=== PATIENT | male | born 1930 | race Caucasian/White ===

== ENCOUNTER 2018-03-22 18:40 | Inpatient (IN) | payer MEDICARE, BC ==
[2018-03-22 19:44] LABS: ADD MAN DIFF? NO
[2018-03-22 19:52] LABS: BASOPHILS % 0.2 % (0.0-2.0); EOSINOPHILS # 0.1 10^3/ul (0.0-0.5); EOSINOPHILS % 1.1 % (0.0-7.0); HEMATOCRIT 39.8 % (42.0-52.0); HEMOGLOBIN 13.6 g/dl (14.0-18.0); LYMPHOCYTES # 0.7 10^3/ul (0.8-2.9); MEAN CORPUSCULAR HEMOGLOBIN 33.1 pg (29.0-33.0); MEAN CORPUSCULAR HGB CONC 34.2 g/dl (32.0-37.0); MEAN CORPUSCULAR VOLUME 96.8 fl (82.0-101.0); MEAN PLATELET VOLUME 11.9 fl (7.4-10.4); MONOCYTE # 0.5 10^3/ul (0.3-0.9); MONOCYTES % 9.1 % (0.0-11.0); NEUTROPHIL # 4.1 10^3/ul (1.6-7.5); NEUTROPHILS % 75.9 % (39.0-77.0); PLATELET COUNT 230 10^3/UL (140-415); RED BLOOD COUNT 4.11 10^6/ul (4.70-6.10); RED CELL DISTRIBUTION WIDTH 12.4 % (11.5-14.5)
[2018-03-22 19:52] LABS: WHITE BLOOD COUNT 5.4 10^3/ul (4.8-10.8)
[2018-03-22 20:00] LABS: LACTIC ACID 1.1 mmol/L (0.5-2.0)
[2018-03-22 20:02] LABS: INR 0.93; PARTIAL THROMBOPLASTIN TIME 21.5 Sec (25.0-35.0); PROTIME 12.6 Sec (11.9-14.9)
[2018-03-22 20:10] LABS: ALANINE AMINOTRANSFERASE 15 IU/L (13-69); ALBUMIN/GLOBULIN RATIO 1.02; ALKALINE PHOSPHATASE 90 IU/L (42-121); ANION GAP 12 (8-16); ASPARTATE AMINO TRANSFERASE 44 IU/L (15-46); BILIRUBIN,INDIRECT 0.7 mg/dl (0-1.1); BILIRUBIN,TOTAL 0.7 mg/dl (0.2-1.3); BLOOD UREA NITROGEN 27 mg/dl (7-20); CALCIUM 8.9 mg/dl (8.4-10.2); CARBON DIOXIDE 31 mmol/L (21-31); CHLORIDE 96 mmol/L (97-110); CREATININE 0.51 mg/dl (0.61-1.24); GLUCOSE 82 mg/dl (70-220); SODIUM 135 mmol/L (135-144); TOTAL PROTEIN 7.9 g/dl (6.1-8.1)
[2018-03-22 20:11] LABS: ADD UMIC YES; UR ASCORBIC ACID 40 mg/dL (NEGATIVE); UR BILIRUBIN (Dip) NEGATIVE (NEGATIVE); UR BLOOD (Dip) 1+ mg/dL (NEGATIVE); UR CLARITY CLEAR (CLEAR); UR COLOR YELLOW (YELLOW); UR GLUCOSE (Dip) NEGATIVE (NEGATIVE); UR KETONES (Dip) TRACE mg/dL (NEGATIVE); UR LEUKOCYTE ESTERASE (Dip) NEGATIVE Leu/ul (NEGATIVE); UR MUCUS FEW /HPF (NONE SEEN); UR NITRITE (Dip) NEGATIVE (NEGATIVE); UR RBC 153 /HPF (0-5); UR SPECIFIC GRAVITY (Dip) 1.017 (1.003-1.030); UR TOTAL PROTEIN (Dip) NEGATIVE (NEGATIVE); UR UROBILINOGEN (Dip) 2+ mg/dL (NEGATIVE); UR WBC 4 /HPF (0-5)
[2018-03-22 20:24] LABS: TROPONIN-I < 0.012 ng/ml (0.000-0.120)
[2018-03-22] MEDS ORDERED: ONDANSETRON 4 MG INJ IV ×2 (21:00→23:30)
[2018-03-22] MEDS ORDERED: ACETAMINOPHEN 325 MG TAB PO (21:00)
[2018-03-22] MEDS: AZITHROMYCIN 500MG/NS (PMX) 250 ML IVPB (21:30)
[2018-03-22] MEDS: AMPICILLIN/SULB 3 GM/NS (PMX) 100 ML IVPB (23:09)
[2018-03-22 23:24] LABS: LACTIC ACID 1.1 mmol/L (0.5-2.0)
[2018-03-22] MEDS ORDERED: ACETAMINOPHEN 500 MG TAB PO (23:30)
[2018-03-22] MEDS: LORAZEPAM 2 MG INJ IV (23:58)
[2018-03-23] MEDS: D5W-0.45 NACL + KCL 20 MEQ 1,000 ML IV ×2 (01:13→14:21)
[2018-03-23] MEDS: ALBUTEROL/IPRATROPIUM (NEB) 3 ML AMP HHN ×4 (01:31→20:00)
[2018-03-23] MEDS: PIPER-TAZO 3.375 GM IV (PMX) 100 ML IVPB ×3 (06:15→21:49)
[2018-03-23 06:22] LABS: ADD MAN DIFF? NO
[2018-03-23 06:35] LABS: BASOPHILS % 0.1 % (0.0-2.0); EOSINOPHILS % 0.4 % (0.0-7.0); HEMATOCRIT 40.4 % (42.0-52.0); HEMOGLOBIN 13.5 g/dl (14.0-18.0); LYMPHOCYTES # 0.9 10^3/ul (0.8-2.9); LYMPHOCYTES % 11.6 % (15.0-51.0); MEAN CORPUSCULAR HEMOGLOBIN 32.5 pg (29.0-33.0); MEAN CORPUSCULAR HGB CONC 33.4 g/dl (32.0-37.0); MEAN CORPUSCULAR VOLUME 97.3 fl (82.0-101.0); MEAN PLATELET VOLUME 11.8 fl (7.4-10.4); MONOCYTE # 0.8 10^3/ul (0.3-0.9); MONOCYTES % 9.9 % (0.0-11.0); NEUTROPHIL # 5.9 10^3/ul (1.6-7.5); NEUTROPHILS % 77.5 % (39.0-77.0); PLATELET COUNT 219 10^3/UL (140-415); RED BLOOD COUNT 4.15 10^6/ul (4.70-6.10); RED CELL DISTRIBUTION WIDTH 12.7 % (11.5-14.5)
[2018-03-23 06:35] LABS: WHITE BLOOD COUNT 7.7 10^3/ul (4.8-10.8)
[2018-03-23 07:09] LABS: ANION GAP 8 (8-16); BLOOD UREA NITROGEN 20 mg/dl (7-20); CALCIUM 8.7 mg/dl (8.4-10.2); CARBON DIOXIDE 32 mmol/L (21-31); CHLORIDE 100 mmol/L (97-110); CREATININE 0.46 mg/dl (0.61-1.24); GLUCOSE 114 mg/dl (70-220); POTASSIUM 4.2 mmol/L (3.5-5.1); SODIUM 136 mmol/L (135-144)
[2018-03-23] MEDS: LORAZEPAM 2 MG INJ IV (16:22)
[2018-03-24] MEDS: D5W-0.45 NACL + KCL 20 MEQ 1,000 ML IV ×3 (00:30→12:19)
[2018-03-24] MEDS: ALBUTEROL/IPRATROPIUM (NEB) 3 ML AMP HHN ×4 (01:25→19:54)
[2018-03-24] MEDS: PIPER-TAZO 3.375 GM IV (PMX) 100 ML IVPB ×3 (05:24→22:00)
[2018-03-24] MEDS: PROPOFOL 20 ML (07:39)
[2018-03-24] MEDS: LIDOCAINE 2% (SDV) 5 ML INJ (07:40)
[2018-03-24 10:57] LABS: ADD MAN DIFF? NO
[2018-03-24 10:59] LABS: WHITE BLOOD COUNT 5.2 10^3/ul (4.8-10.8)
[2018-03-24 10:59] LABS: ABNORMAL IP MESSAGE 1; BASOPHILS % 0.2 % (0.0-2.0); EOSINOPHILS # 0.1 10^3/ul (0.0-0.5); EOSINOPHILS % 1.1 % (0.0-7.0); HEMATOCRIT 33.5 % (42.0-52.0); HEMOGLOBIN 10.8 g/dl (14.0-18.0); LYMPHOCYTES # 0.6 10^3/ul (0.8-2.9); LYMPHOCYTES % 11.3 % (15.0-51.0); MEAN CORPUSCULAR HEMOGLOBIN 32.1 pg (29.0-33.0); MEAN CORPUSCULAR HGB CONC 32.2 g/dl (32.0-37.0); MEAN CORPUSCULAR VOLUME 99.7 fl (82.0-101.0); MEAN PLATELET VOLUME 11.9 fl (7.4-10.4); MONOCYTE # 0.6 10^3/ul (0.3-0.9); MONOCYTES % 10.9 % (0.0-11.0); NEUTROPHILS % 76.3 % (39.0-77.0); PLATELET COUNT 181 10^3/UL (140-415); POSITIVE DIFF @See below; RED BLOOD COUNT 3.36 10^6/ul (4.70-6.10); RED CELL DISTRIBUTION WIDTH 12.6 % (11.5-14.5)
[2018-03-24 11:25] LABS: ANION GAP 14 (8-16); BLOOD UREA NITROGEN 15 mg/dl (7-20); CALCIUM 8.2 mg/dl (8.4-10.2); CARBON DIOXIDE 30 mmol/L (21-31); CHLORIDE 97 mmol/L (97-110); CREATININE 0.43 mg/dl (0.61-1.24); GLUCOSE 117 mg/dl (70-220); POTASSIUM 4.1 mmol/L (3.5-5.1); SODIUM 137 mmol/L (135-144)
[2018-03-24] MEDS: LORAZEPAM 2 MG INJ IV ×2 (12:42→20:01)
[2018-03-25] MEDS: D5W-0.45 NACL + KCL 20 MEQ 1,000 ML IV ×3 (00:16→14:00)
[2018-03-25] MEDS: ALBUTEROL/IPRATROPIUM (NEB) 3 ML AMP HHN ×4 (01:24→19:23)
[2018-03-25] MEDS: PIPER-TAZO 3.375 GM IV (PMX) 100 ML IVPB ×3 (06:07→22:03)
[2018-03-25] MEDS: LORAZEPAM 2 MG INJ IV (11:28)
[2018-03-26] MEDS: ALBUTEROL/IPRATROPIUM (NEB) 3 ML AMP HHN ×4 (01:35→19:34)
[2018-03-26] MEDS: D5W-0.45 NACL + KCL 20 MEQ 1,000 ML IV ×2 (02:53→15:00)
[2018-03-26] MEDS: PIPER-TAZO 3.375 GM IV (PMX) 100 ML IVPB ×3 (05:13→22:40)
[2018-03-26 06:19] LABS: ADD MAN DIFF? NO
[2018-03-26 06:31] LABS: BASOPHILS % 0.2 % (0.0-2.0); EOSINOPHILS % 0.7 % (0.0-7.0); HEMATOCRIT 34.7 % (42.0-52.0); HEMOGLOBIN 12.2 g/dl (14.0-18.0); LYMPHOCYTES # 0.6 10^3/ul (0.8-2.9); LYMPHOCYTES % 10.4 % (15.0-51.0); MEAN CORPUSCULAR HEMOGLOBIN 33.4 pg (29.0-33.0); MEAN CORPUSCULAR HGB CONC 35.2 g/dl (32.0-37.0); MEAN CORPUSCULAR VOLUME 95.1 fl (82.0-101.0); MEAN PLATELET VOLUME 11.8 fl (7.4-10.4); MONOCYTE # 0.7 10^3/ul (0.3-0.9); MONOCYTES % 12.3 % (0.0-11.0); NEUTROPHIL # 4.5 10^3/ul (1.6-7.5); NEUTROPHILS % 76.1 % (39.0-77.0); PLATELET COUNT 208 10^3/UL (140-415); RED BLOOD COUNT 3.65 10^6/ul (4.70-6.10); RED CELL DISTRIBUTION WIDTH 12.3 % (11.5-14.5)
[2018-03-26 06:58] LABS: ANION GAP 15 (8-16); BLOOD UREA NITROGEN 9 mg/dl (7-20); CALCIUM 8.4 mg/dl (8.4-10.2); CARBON DIOXIDE 28 mmol/L (21-31); CHLORIDE 92 mmol/L (97-110); CREATININE 0.37 mg/dl (0.61-1.24); GLUCOSE 124 mg/dl (70-220); POTASSIUM 4.2 mmol/L (3.5-5.1); SODIUM 131 mmol/L (135-144)
[2018-03-26] MEDS: DOCUSATE SODIUM 100 MG CAP PO (21:00)
[2018-03-26] MEDS ORDERED: NON-FORMULARY/PATIENT OWN MED (Carbidopa/Levodopa (Carbidopa-Levo 25-100 Mg Odt) 1 TAB) GTB (21:00)
[2018-03-26] MEDS: LORAZEPAM 2 MG INJ IV (22:40)
[2018-03-27] MEDS: ALBUTEROL/IPRATROPIUM (NEB) 3 ML AMP HHN ×4 (01:05→19:43)
[2018-03-27] MEDS: D5W-0.45 NACL + KCL 20 MEQ 1,000 ML IV ×2 (04:11→16:19)
[2018-03-27] MEDS: PIPER-TAZO 3.375 GM IV (PMX) 100 ML IVPB ×3 (05:45→21:46)
[2018-03-27 06:40] LABS: ADD MAN DIFF? NO
[2018-03-27 06:44] LABS: WHITE BLOOD COUNT 8.4 10^3/ul (4.8-10.8)
[2018-03-27 06:44] LABS: ABNORMAL IP MESSAGE 1; BASOPHILS % 0.1 % (0.0-2.0); EOSINOPHILS % 0.4 % (0.0-7.0); HEMATOCRIT 34.5 % (42.0-52.0); HEMOGLOBIN 12.3 g/dl (14.0-18.0); LYMPHOCYTES # 0.6 10^3/ul (0.8-2.9); LYMPHOCYTES % 6.7 % (15.0-51.0); MEAN CORPUSCULAR HEMOGLOBIN 33.3 pg (29.0-33.0); MEAN CORPUSCULAR HGB CONC 35.7 g/dl (32.0-37.0); MEAN CORPUSCULAR VOLUME 93.5 fl (82.0-101.0); MONOCYTE # 0.9 10^3/ul (0.3-0.9); MONOCYTES % 10.8 % (0.0-11.0); NEUTROPHIL # 6.9 10^3/ul (1.6-7.5); NEUTROPHILS % 81.5 % (39.0-77.0); PLATELET COUNT 221 10^3/UL (140-415); POSITIVE DIFF @See below; RED BLOOD COUNT 3.69 10^6/ul (4.70-6.10); RED CELL DISTRIBUTION WIDTH 12.5 % (11.5-14.5)
[2018-03-27 07:08] LABS: ANION GAP 14 (8-16); BLOOD UREA NITROGEN 13 mg/dl (7-20); CALCIUM 8.4 mg/dl (8.4-10.2); CARBON DIOXIDE 25 mmol/L (21-31); CHLORIDE 95 mmol/L (97-110); CREATININE 0.39 mg/dl (0.61-1.24); GLUCOSE 158 mg/dl (70-220); POTASSIUM 4.2 mmol/L (3.5-5.1); SODIUM 130 mmol/L (135-144)
[2018-03-27] MEDS ORDERED: DIVALPROEX SODIUM 250 MG GTB (09:00)
[2018-03-27] MEDS ORDERED: NON-FORMULARY/PATIENT OWN MED (Multivit &Minerals/Ferrous Fum (Multivitamin Liquid) 5 ML) GTB (09:00)
[2018-03-27] MEDS: CARBIDOPA/LEVODOPA (25/100) TAB GTB ×3 (09:15→20:31)
[2018-03-27] MEDS: VALPROIC ACID LIQUID CUP 250 MG/5 ML CUP GTB (09:15)
[2018-03-27] MEDS: ZINC SULFATE 220 MG CAP GTB (09:15)
[2018-03-27] MEDS: ASPIRIN 81 MG TAB GTB (09:16)
[2018-03-27] MEDS: MULTIVITAMINS 30 ML CUP GTB (11:06)
[2018-03-27] MEDS: DOCUSATE SODIUM 100 MG CAP PO (20:29)
[2018-03-28] MEDS: ALBUTEROL/IPRATROPIUM (NEB) 3 ML AMP HHN ×4 (01:44→19:48)
[2018-03-28] MEDS: D5W-0.45 NACL + KCL 20 MEQ 1,000 ML IV ×2 (04:22→15:24)
[2018-03-28] MEDS: PIPER-TAZO 3.375 GM IV (PMX) 100 ML IVPB ×3 (05:43→22:22)
[2018-03-28 07:36] LABS: ADD MAN DIFF? NO
[2018-03-28 07:39] LABS: BASOPHILS % 0.4 % (0.0-2.0); EOSINOPHILS # 0.1 10^3/ul (0.0-0.5); EOSINOPHILS % 2.9 % (0.0-7.0); HEMATOCRIT 33.1 % (42.0-52.0); HEMOGLOBIN 11.1 g/dl (14.0-18.0); LYMPHOCYTES # 0.9 10^3/ul (0.8-2.9); LYMPHOCYTES % 18.7 % (15.0-51.0); MEAN CORPUSCULAR HGB CONC 33.5 g/dl (32.0-37.0); MEAN CORPUSCULAR VOLUME 98.5 fl (82.0-101.0); MEAN PLATELET VOLUME 12.4 fl (7.4-10.4); MONOCYTE # 0.7 10^3/ul (0.3-0.9); MONOCYTES % 16.1 % (0.0-11.0); NEUTROPHIL # 2.8 10^3/ul (1.6-7.5); NEUTROPHILS % 61.5 % (39.0-77.0); PLATELET COUNT 179 10^3/UL (140-415); RED BLOOD COUNT 3.36 10^6/ul (4.70-6.10); RED CELL DISTRIBUTION WIDTH 12.9 % (11.5-14.5)
[2018-03-28 07:39] LABS: WHITE BLOOD COUNT 4.5 10^3/ul (4.8-10.8)
[2018-03-28 08:21] LABS: ANION GAP 14 (8-16); BLOOD UREA NITROGEN 12 mg/dl (7-20); CALCIUM 8.4 mg/dl (8.4-10.2); CARBON DIOXIDE 31 mmol/L (21-31); CHLORIDE 96 mmol/L (97-110); CREATININE 0.39 mg/dl (0.61-1.24); GLUCOSE 105 mg/dl (70-220); POTASSIUM 4.6 mmol/L (3.5-5.1); SODIUM 136 mmol/L (135-144)
[2018-03-28] MEDS: ASPIRIN 81 MG TAB GTB (08:53)
[2018-03-28] MEDS: ZINC SULFATE 220 MG CAP GTB (08:53)
[2018-03-28] MEDS: MULTIVITAMINS 30 ML CUP GTB (08:53)
[2018-03-28] MEDS: CARBIDOPA/LEVODOPA (25/100) TAB GTB ×3 (08:53→22:22)
[2018-03-28] MEDS: VALPROIC ACID LIQUID CUP 250 MG/5 ML CUP GTB (08:53)
[2018-03-28] MEDS ORDERED: MINERAL OIL 133 ML ENEMA PR (14:30)
[2018-03-28] MEDS ORDERED: MAGNESIUM HYDROXIDE 30ML CUP GTB (14:30)
[2018-03-28] MEDS ORDERED: BISACODYL 10 MG SUPP PR (14:30)
[2018-03-28] MEDS: AL HYDROX/MG HYDROX/SIMETH 30 ML CUP GTB ×3 (15:19→22:30)
[2018-03-28] MEDS: ASCORBIC ACID 500 MG TAB GTB (22:22)
[2018-03-28] MEDS: DOCUSATE SODIUM 10 MG/ML (10ML CUP) GTB (22:23)
[2018-03-29] MEDS: ALBUTEROL/IPRATROPIUM (NEB) 3 ML AMP HHN ×4 (01:53→19:47)
[2018-03-29] MEDS: AL HYDROX/MG HYDROX/SIMETH 30 ML CUP GTB ×6 (03:17→23:16)
[2018-03-29] MEDS: PIPER-TAZO 3.375 GM IV (PMX) 100 ML IVPB ×3 (06:09→21:33)
[2018-03-29 06:13] LABS: ADD MAN DIFF? NO
[2018-03-29 06:26] LABS: BASOPHILS % 0.4 % (0.0-2.0); EOSINOPHILS # 0.2 10^3/ul (0.0-0.5); EOSINOPHILS % 3.4 % (0.0-7.0); HEMATOCRIT 31.2 % (42.0-52.0); HEMOGLOBIN 10.6 g/dl (14.0-18.0); LYMPHOCYTES # 0.9 10^3/ul (0.8-2.9); LYMPHOCYTES % 18.5 % (15.0-51.0); MEAN CORPUSCULAR HEMOGLOBIN 32.8 pg (29.0-33.0); MEAN CORPUSCULAR VOLUME 96.6 fl (82.0-101.0); MONOCYTE # 0.7 10^3/ul (0.3-0.9); MONOCYTES % 15.5 % (0.0-11.0); NEUTROPHIL # 2.9 10^3/ul (1.6-7.5); NEUTROPHILS % 61.8 % (39.0-77.0); PLATELET COUNT 196 10^3/UL (140-415); RED BLOOD COUNT 3.23 10^6/ul (4.70-6.10); RED CELL DISTRIBUTION WIDTH 12.8 % (11.5-14.5)
[2018-03-29 06:26] LABS: WHITE BLOOD COUNT 4.8 10^3/ul (4.8-10.8)
[2018-03-29 06:49] LABS: PREALBUMIN 14.9 mg/dl (17.6-36.0)
[2018-03-29 06:59] LABS: ANION GAP 10 (8-16); BLOOD UREA NITROGEN 15 mg/dl (7-20); CALCIUM 8.4 mg/dl (8.4-10.2); CARBON DIOXIDE 31 mmol/L (21-31); CHLORIDE 99 mmol/L (97-110); CREATININE 0.47 mg/dl (0.61-1.24); GLUCOSE 108 mg/dl (70-220); POTASSIUM 4.2 mmol/L (3.5-5.1); SODIUM 136 mmol/L (135-144)
[2018-03-29] MEDS: VALPROIC ACID LIQUID CUP 250 MG/5 ML CUP GTB (09:27)
[2018-03-29] MEDS: MULTIVITAMINS 30 ML CUP GTB (09:27)
[2018-03-29] MEDS: ASPIRIN 81 MG TAB GTB (09:27)
[2018-03-29] MEDS: ASCORBIC ACID 500 MG TAB GTB ×2 (09:27→20:19)
[2018-03-29] MEDS: ZINC SULFATE 220 MG CAP GTB (09:27)
[2018-03-29] MEDS: CARBIDOPA/LEVODOPA (25/100) TAB GTB ×3 (09:27→20:19)
[2018-03-29] MEDS: DOCUSATE SODIUM 10 MG/ML (10ML CUP) GTB (20:19)
[2018-03-30] MEDS: ALBUTEROL/IPRATROPIUM (NEB) 3 ML AMP HHN ×5 (01:25→20:33)
[2018-03-30] MEDS: AL HYDROX/MG HYDROX/SIMETH 30 ML CUP GTB ×6 (03:48→23:45)
[2018-03-30 07:29] LABS: ADD MAN DIFF? NO
[2018-03-30 07:33] LABS: BASOPHILS % 0.5 % (0.0-2.0); EOSINOPHILS # 0.1 10^3/ul (0.0-0.5); EOSINOPHILS % 3.1 % (0.0-7.0); HEMATOCRIT 33.9 % (42.0-52.0); HEMOGLOBIN 11.4 g/dl (14.0-18.0); LYMPHOCYTES # 0.9 10^3/ul (0.8-2.9); LYMPHOCYTES % 22.2 % (15.0-51.0); MEAN CORPUSCULAR HEMOGLOBIN 32.8 pg (29.0-33.0); MEAN CORPUSCULAR HGB CONC 33.6 g/dl (32.0-37.0); MEAN CORPUSCULAR VOLUME 97.4 fl (82.0-101.0); MEAN PLATELET VOLUME 12.1 fl (7.4-10.4); MONOCYTE # 0.6 10^3/ul (0.3-0.9); MONOCYTES % 15.1 % (0.0-11.0); NEUTROPHIL # 2.3 10^3/ul (1.6-7.5); NEUTROPHILS % 58.1 % (39.0-77.0); PLATELET COUNT 198 10^3/UL (140-415); RED BLOOD COUNT 3.48 10^6/ul (4.70-6.10); RED CELL DISTRIBUTION WIDTH 12.8 % (11.5-14.5)
[2018-03-30 07:33] LABS: WHITE BLOOD COUNT 3.9 10^3/ul (4.8-10.8)
[2018-03-30 08:04] LABS: ANION GAP 12 (8-16); BLOOD UREA NITROGEN 18 mg/dl (7-20); CALCIUM 8.5 mg/dl (8.4-10.2); CARBON DIOXIDE 29 mmol/L (21-31); CHLORIDE 99 mmol/L (97-110); CREATININE 0.45 mg/dl (0.61-1.24); GLUCOSE 104 mg/dl (70-220); POTASSIUM 4.3 mmol/L (3.5-5.1); SODIUM 136 mmol/L (135-144)
[2018-03-30] MEDS: VALPROIC ACID LIQUID CUP 250 MG/5 ML CUP GTB (09:38)
[2018-03-30] MEDS: ZINC SULFATE 220 MG CAP GTB (09:38)
[2018-03-30] MEDS: MULTIVITAMINS 30 ML CUP GTB (09:38)
[2018-03-30] MEDS: ASCORBIC ACID 500 MG TAB GTB ×2 (09:38→20:22)
[2018-03-30] MEDS: CARBIDOPA/LEVODOPA (25/100) TAB GTB ×3 (09:38→20:22)
[2018-03-30] MEDS: ASPIRIN 81 MG TAB GTB (09:38)
[2018-03-30] MEDS: DOCUSATE SODIUM 10 MG/ML (10ML CUP) GTB (20:23)
[2018-03-31] MEDS: ALBUTEROL/IPRATROPIUM (NEB) 3 ML AMP HHN ×4 (02:10→21:40)
[2018-03-31] MEDS: AL HYDROX/MG HYDROX/SIMETH 30 ML CUP GTB ×7 (03:23→23:00)
[2018-03-31 05:05] LABS: WHITE BLOOD COUNT 4.2 10^3/ul (4.8-10.8)
[2018-03-31 05:05] LABS: HEMATOCRIT 32.9 % (42.0-52.0); HEMOGLOBIN 11.1 g/dl (14.0-18.0); MEAN CORPUSCULAR HEMOGLOBIN 32.6 pg (29.0-33.0); MEAN CORPUSCULAR HGB CONC 33.7 g/dl (32.0-37.0); MEAN CORPUSCULAR VOLUME 96.5 fl (82.0-101.0); MEAN PLATELET VOLUME 11.7 fl (7.4-10.4); PLATELET COUNT 195 10^3/UL (140-415); RED BLOOD COUNT 3.41 10^6/ul (4.70-6.10); RED CELL DISTRIBUTION WIDTH 12.6 % (11.5-14.5)
[2018-03-31 05:15] LABS: ANION GAP 11 (8-16); BLOOD UREA NITROGEN 19 mg/dl (7-20); CALCIUM 8.3 mg/dl (8.4-10.2); CARBON DIOXIDE 31 mmol/L (21-31); CHLORIDE 99 mmol/L (97-110); CREATININE 0.47 mg/dl (0.61-1.24); GLUCOSE 109 mg/dl (70-220); POTASSIUM 4.2 mmol/L (3.5-5.1); SODIUM 137 mmol/L (135-144)
[2018-03-31 05:17] LABS: ADD MAN DIFF? YES
[2018-03-31 05:26] LABS: BASOPHILS % 0.5 % (0.0-2.0); EOSINOPHILS % 1.7 % (0.0-7.0); LYMPHOCYTES % 20.7 % (15.0-51.0); MONOCYTES % 16.6 % (0.0-11.0); NEUTROPHILS % 60.3 % (39.0-77.0)
[2018-03-31 05:27] LABS: EOSINOPHILS # 0.1 10^3/ul (0.0-0.5); LYMPHOCYTES # 0.9 10^3/ul (0.8-2.9); MONOCYTE # 0.7 10^3/ul (0.3-0.9); NEUTROPHIL # 2.5 10^3/ul (1.6-7.5)
[2018-03-31] MEDS: ASPIRIN 81 MG TAB GTB (09:17)
[2018-03-31] MEDS: ZINC SULFATE 220 MG CAP GTB (09:17)
[2018-03-31] MEDS: CARBIDOPA/LEVODOPA (25/100) TAB GTB ×3 (09:17→21:17)
[2018-03-31] MEDS: MULTIVITAMINS 30 ML CUP GTB (09:18)
[2018-03-31] MEDS: VALPROIC ACID LIQUID CUP 250 MG/5 ML CUP GTB (09:18)
[2018-03-31] MEDS: ASCORBIC ACID 500 MG TAB GTB ×2 (09:18→21:17)
[2018-03-31] MEDS: DOCUSATE SODIUM 10 MG/ML (10ML CUP) GTB (21:00)
[2018-04-01] MEDS: ALBUTEROL/IPRATROPIUM (NEB) 3 ML AMP HHN ×4 (02:22→20:00)
[2018-04-01] MEDS: AL HYDROX/MG HYDROX/SIMETH 30 ML CUP GTB ×5 (03:33→18:28)
[2018-04-01] MEDS: VALPROIC ACID LIQUID CUP 250 MG/5 ML CUP GTB (08:42)
[2018-04-01] MEDS: MULTIVITAMINS 30 ML CUP GTB (08:42)
[2018-04-01] MEDS: ASPIRIN 81 MG TAB GTB (08:43)
[2018-04-01] MEDS: ASCORBIC ACID 500 MG TAB GTB ×2 (08:43→21:23)
[2018-04-01] MEDS: CARBIDOPA/LEVODOPA (25/100) TAB GTB ×3 (08:43→21:24)
[2018-04-01] MEDS: ZINC SULFATE 220 MG CAP GTB (08:43)
[2018-04-01 10:50] LABS: ADD MAN DIFF? NO
[2018-04-01 10:52] LABS: WHITE BLOOD COUNT 4.4 10^3/ul (4.8-10.8)
[2018-04-01 10:52] LABS: BASOPHILS % 0.5 % (0.0-2.0); EOSINOPHILS # 0.2 10^3/ul (0.0-0.5); EOSINOPHILS % 3.4 % (0.0-7.0); HEMATOCRIT 35.8 % (42.0-52.0); LYMPHOCYTES # 0.7 10^3/ul (0.8-2.9); LYMPHOCYTES % 15.4 % (15.0-51.0); MEAN CORPUSCULAR HEMOGLOBIN 32.9 pg (29.0-33.0); MEAN CORPUSCULAR HGB CONC 33.5 g/dl (32.0-37.0); MEAN CORPUSCULAR VOLUME 98.1 fl (82.0-101.0); MEAN PLATELET VOLUME 11.3 fl (7.4-10.4); MONOCYTE # 0.6 10^3/ul (0.3-0.9); MONOCYTES % 12.4 % (0.0-11.0); NEUTROPHILS % 67.6 % (39.0-77.0); PLATELET COUNT 222 10^3/UL (140-415); RED BLOOD COUNT 3.65 10^6/ul (4.70-6.10); RED CELL DISTRIBUTION WIDTH 12.8 % (11.5-14.5)
[2018-04-01 11:09] LABS: ANION GAP 12 (8-16); BLOOD UREA NITROGEN 20 mg/dl (7-20); CALCIUM 8.2 mg/dl (8.4-10.2); CARBON DIOXIDE 31 mmol/L (21-31); CHLORIDE 97 mmol/L (97-110); GLUCOSE 110 mg/dl (70-220); POTASSIUM 4.1 mmol/L (3.5-5.1); SODIUM 136 mmol/L (135-144)
[2018-04-01] MEDS: DOCUSATE SODIUM 10 MG/ML (10ML CUP) GTB (21:23)
[2018-04-02] MEDS: AL HYDROX/MG HYDROX/SIMETH 30 ML CUP GTB ×6 (00:23→21:02)
[2018-04-02] MEDS: ALBUTEROL/IPRATROPIUM (NEB) 3 ML AMP HHN ×4 (02:00→21:02)
[2018-04-02 06:57] LABS: ADD MAN DIFF? NO
[2018-04-02 07:06] LABS: WHITE BLOOD COUNT 4.6 10^3/ul (4.8-10.8)
[2018-04-02 07:06] LABS: BASOPHILS % 0.6 % (0.0-2.0); EOSINOPHILS # 0.2 10^3/ul (0.0-0.5); EOSINOPHILS % 4.1 % (0.0-7.0); HEMATOCRIT 35.9 % (42.0-52.0); LYMPHOCYTES # 0.9 10^3/ul (0.8-2.9); LYMPHOCYTES % 18.8 % (15.0-51.0); MEAN CORPUSCULAR HEMOGLOBIN 32.7 pg (29.0-33.0); MEAN CORPUSCULAR HGB CONC 33.4 g/dl (32.0-37.0); MEAN CORPUSCULAR VOLUME 97.8 fl (82.0-101.0); MEAN PLATELET VOLUME 11.4 fl (7.4-10.4); MONOCYTE # 0.7 10^3/ul (0.3-0.9); MONOCYTES % 14.3 % (0.0-11.0); NEUTROPHIL # 2.9 10^3/ul (1.6-7.5); NEUTROPHILS % 61.6 % (39.0-77.0); PLATELET COUNT 238 10^3/UL (140-415); RED BLOOD COUNT 3.67 10^6/ul (4.70-6.10); RED CELL DISTRIBUTION WIDTH 12.6 % (11.5-14.5)
[2018-04-02 07:31] LABS: ANION GAP 14 (8-16); BLOOD UREA NITROGEN 22 mg/dl (7-20); CALCIUM 8.4 mg/dl (8.4-10.2); CARBON DIOXIDE 31 mmol/L (21-31); CHLORIDE 96 mmol/L (97-110); CREATININE 0.43 mg/dl (0.61-1.24); GLUCOSE 101 mg/dl (70-220); POTASSIUM 4.2 mmol/L (3.5-5.1); SODIUM 137 mmol/L (135-144)
[2018-04-02] MEDS: ASPIRIN 81 MG TAB GTB (08:33)
[2018-04-02] MEDS: MULTIVITAMINS 30 ML CUP GTB (08:33)
[2018-04-02] MEDS: VALPROIC ACID LIQUID CUP 250 MG/5 ML CUP GTB (08:33)
[2018-04-02] MEDS: ASCORBIC ACID 500 MG TAB GTB ×2 (08:34→21:02)
[2018-04-02] MEDS: ZINC SULFATE 220 MG CAP GTB (08:34)
[2018-04-02] MEDS: CARBIDOPA/LEVODOPA (25/100) TAB GTB ×3 (08:34→21:02)
[2018-04-02] MEDS: ACETAMINOPHEN 500 MG TAB PO (14:54)
[2018-04-02] MEDS: DOCUSATE SODIUM 10 MG/ML (10ML CUP) GTB (21:02)
[2018-04-03] MEDS: AL HYDROX/MG HYDROX/SIMETH 30 ML CUP GTB ×7 (00:21→22:46)
[2018-04-03] MEDS: ALBUTEROL/IPRATROPIUM (NEB) 3 ML AMP HHN ×4 (01:26→19:12)
[2018-04-03] MEDS: MULTIVITAMINS 30 ML CUP GTB (08:36)
[2018-04-03] MEDS: ZINC SULFATE 220 MG CAP GTB (08:36)
[2018-04-03] MEDS: ASPIRIN 81 MG TAB GTB (08:36)
[2018-04-03] MEDS: VALPROIC ACID LIQUID CUP 250 MG/5 ML CUP GTB (08:36)
[2018-04-03] MEDS: ASCORBIC ACID 500 MG TAB GTB ×2 (08:36→20:41)
[2018-04-03] MEDS: CARBIDOPA/LEVODOPA (25/100) TAB GTB ×3 (08:36→20:41)
[2018-04-03] MEDS: ACETAMINOPHEN 500 MG TAB PO (08:37)
[2018-04-03] MEDS: DOCUSATE SODIUM 10 MG/ML (10ML CUP) GTB (20:41)
[2018-04-04] MEDS: ALBUTEROL/IPRATROPIUM (NEB) 3 ML AMP HHN ×4 (01:43→20:53)
[2018-04-04] MEDS: AL HYDROX/MG HYDROX/SIMETH 30 ML CUP GTB ×6 (03:35→22:45)
[2018-04-04] MEDS: MULTIVITAMINS 30 ML CUP GTB (10:46)
[2018-04-04] MEDS: CARBIDOPA/LEVODOPA (25/100) TAB GTB ×3 (10:46→21:17)
[2018-04-04] MEDS: ASCORBIC ACID 500 MG TAB GTB ×2 (10:46→21:17)
[2018-04-04] MEDS: ZINC SULFATE 220 MG CAP GTB (10:46)
[2018-04-04] MEDS: VALPROIC ACID LIQUID CUP 250 MG/5 ML CUP GTB (10:47)
[2018-04-04] MEDS: ASPIRIN 81 MG TAB GTB (10:47)
[2018-04-04] MEDS: AMOXICILLIN 500 MG CAP PO (17:32)
[2018-04-04] MEDS: DOCUSATE SODIUM 10 MG/ML (10ML CUP) GTB (21:17)
[2018-04-04] MEDS: metroNIDAZOLE 500 MG TAB GTB (21:19)
[2018-04-05] MEDS: ALBUTEROL/IPRATROPIUM (NEB) 3 ML AMP HHN ×3 (01:41→14:04)
[2018-04-05] MEDS: AL HYDROX/MG HYDROX/SIMETH 30 ML CUP GTB ×4 (03:40→14:44)
[2018-04-05] MEDS: PANTOPRAZOLE (EC) 40 MG TAB PO (05:55)
[2018-04-05] MEDS: metroNIDAZOLE 500 MG TAB GTB ×2 (05:55→14:45)
[2018-04-05] MEDS: ASPIRIN 81 MG TAB GTB (09:55)
[2018-04-05] MEDS: MULTIVITAMINS 30 ML CUP GTB (09:55)
[2018-04-05] MEDS: ASCORBIC ACID 500 MG TAB GTB (09:55)
[2018-04-05] MEDS: AMOXICILLIN 500 MG CAP PO (09:55)
[2018-04-05] MEDS: VALPROIC ACID LIQUID CUP 250 MG/5 ML CUP GTB (09:55)
[2018-04-05] MEDS: ZINC SULFATE 220 MG CAP GTB (09:55)
[2018-04-05] MEDS: CARBIDOPA/LEVODOPA (25/100) TAB GTB ×2 (09:55→14:44)
== END 2018-04-05 19:00 | DRG 177 ==
LOC: PP2 03-28 17:57 → E/R 18:40 → PP2 03-28 18:00 → TEL 20:44
PROC: 0DB68ZX Excision of Stomach, Via Natural or Artificial Opening Endoscopic, Diagnostic (ICD-10-PCS; principal; 2018-03-23 18:00)
DX: J69.0 Pneumonitis due to inhalation of food and vomit (principal); R53.2 Functional quadriplegia; F03.91 Unspecified dementia, unspecified severity, with behavioral disturbance; J96.10 Chronic respiratory failure, unspecified whether with hypoxia or hypercapnia; E44.0 Moderate protein-calorie malnutrition; Z68.1 Body mass index [BMI] 19.9 or less, adult; J90 Pleural effusion, not elsewhere classified; I42.9 Cardiomyopathy, unspecified; I50.40 Unspecified combined systolic (congestive) and diastolic (congestive) heart failure; R13.10 Dysphagia, unspecified; D63.8 Anemia in other chronic diseases classified elsewhere; Z93.1 Gastrostomy status; G20 Parkinson's disease; F02.80 Dementia in other diseases classified elsewhere, unspecified severity, without behavioral disturbance, psychotic disturbance, mood disturbance, and anxiety; R40.2422 Glasgow coma scale score 9-12, at arrival to emergency department; E86.0 Dehydration; R31.9 Hematuria, unspecified; K29.70 Gastritis, unspecified, without bleeding; K31.7 Polyp of stomach and duodenum
CPT/HCPCS: 36415; 71045; 80048; 80053; 81001; 83605; 84134; 84484; 85025; 85610; 85730; 87040; 87081; 87086; 88305; 88312; 93005; 93922; 93970; 94640; 94664; 96365; 97161; 99285-25

== ENCOUNTER 2018-08-31 13:44 | Inpatient (IN) | payer MEDICARE, BC ==
[2018-08-31] MEDS ORDERED: ONDANSETRON 4 MG INJ IV (14:00)
[2018-08-31] MEDS ORDERED: ACETAMINOPHEN 325 MG TAB PO ×2 (14:00→17:00)
[2018-08-31 14:08] LABS: ADD MAN DIFF? NO
[2018-08-31 14:13] LABS: WHITE BLOOD COUNT 13.1 10^3/ul (4.8-10.8)
[2018-08-31 14:13] LABS: ABNORMAL IP MESSAGE 1; BASOPHILS % 0.2 % (0.0-2.0); EOSINOPHILS % 0.1 % (0.0-7.0); HEMATOCRIT 39.3 % (42.0-52.0); HEMOGLOBIN 12.5 g/dl (14.0-18.0); LYMPHOCYTES # 0.5 10^3/ul (0.8-2.9); LYMPHOCYTES % 3.6 % (15.0-51.0); MEAN CORPUSCULAR HEMOGLOBIN 31.6 pg (29.0-33.0); MEAN CORPUSCULAR HGB CONC 31.8 g/dl (32.0-37.0); MEAN CORPUSCULAR VOLUME 99.5 fl (82.0-101.0); MONOCYTE # 1.2 10^3/ul (0.3-0.9); NEUTROPHIL # 11.3 10^3/ul (1.6-7.5); NEUTROPHILS % 86.2 % (39.0-77.0); PLATELET COUNT 293 10^3/UL (140-415); POSITIVE DIFF @See below; RED BLOOD COUNT 3.95 10^6/ul (4.70-6.10); RED CELL DISTRIBUTION WIDTH 13.5 % (11.5-14.5)
[2018-08-31 14:31] LABS: ANION GAP 11 (5-13); BLOOD UREA NITROGEN 49 mg/dl (7-20); CALCIUM 8.5 mg/dl (8.4-10.2); CARBON DIOXIDE 32 mmol/L (21-31); CHLORIDE 101 mmol/L (97-110); CREATININE 0.61 mg/dl (0.61-1.24); GLUCOSE 128 mg/dl (70-220); POTASSIUM 4.9 mmol/L (3.5-5.1); SODIUM 144 mmol/L (135-144)
[2018-08-31 14:33] LABS: INR 1.23; PROTIME 15.7 Sec (11.9-14.9); PT RATIO 1.2
[2018-08-31 14:34] LABS: PARTIAL THROMBOPLASTIN TIME 36.6 Sec (23.0-35.0)
[2018-08-31] MEDS: SODIUM CHLORIDE 0.9% 1L BAG IV* (14:38)
[2018-08-31] MEDS: CEFEPIME 2GM/50 ML (PMX) 50 ML IVPB (14:42)
[2018-08-31 14:44] LABS: TROPONIN-I 0.052 ng/ml (0.000-0.120)
[2018-08-31] MEDS: VANCOMYCIN 1 GM (PMX) 250 ML IVPB (15:19)
[2018-08-31] MEDS ORDERED: VANCOMYCIN IV PER PHARMACY XX (16:30)
[2018-08-31] MEDS ORDERED: ALBUTEROL/IPRATROPIUM (NEB) 3 ML AMP HHN (16:30)
[2018-08-31] MEDS ORDERED: ONDANSETRON 4 MG TAB PO (17:00)
[2018-08-31] MEDS ORDERED: COLLAGENASE 5 GM (UD JAR) TOP (18:01)
[2018-08-31 18:45] LABS: LACTIC ACID 1.2 mmol/L (0.5-2.0)
[2018-08-31] MEDS: ALBUTEROL/IPRATROPIUM (NEB) 3 ML AMP HHN (19:33)
[2018-08-31] MEDS: DOCUSATE SODIUM 10 MG/ML (10ML CUP) GTB (20:35)
[2018-08-31] MEDS: CEFEPIME 1GM/50 ML (PMX) 50 ML IVPB (20:35)
[2018-08-31] MEDS: CARBIDOPA/LEVODOPA (25/100) TAB GTB (20:35)
[2018-09-01] MEDS: ALBUTEROL/IPRATROPIUM (NEB) 3 ML AMP HHN ×4 (01:13→19:39)
[2018-09-01] MEDS: LORAZEPAM 2 MG INJ IV (01:18)
[2018-09-01 05:17] LABS: ADD MAN DIFF? NO
[2018-09-01 05:28] LABS: BASOPHILS % 0.4 % (0.0-2.0); EOSINOPHILS % 0.2 % (0.0-7.0); HEMOGLOBIN 10.8 g/dl (14.0-18.0); LYMPHOCYTES # 0.7 10^3/ul (0.8-2.9); LYMPHOCYTES % 7.7 % (15.0-51.0); MEAN CORPUSCULAR HEMOGLOBIN 31.7 pg (29.0-33.0); MEAN CORPUSCULAR HGB CONC 31.8 g/dl (32.0-37.0); MEAN CORPUSCULAR VOLUME 99.7 fl (82.0-101.0); MEAN PLATELET VOLUME 11.4 fl (7.4-10.4); NEUTROPHIL # 7.2 10^3/ul (1.6-7.5); NEUTROPHILS % 79.6 % (39.0-77.0); PLATELET COUNT 277 10^3/UL (140-415); RED BLOOD COUNT 3.41 10^6/ul (4.70-6.10); RED CELL DISTRIBUTION WIDTH 13.5 % (11.5-14.5)
[2018-09-01 05:46] LABS: ANION GAP 6 (5-13); BLOOD UREA NITROGEN 44 mg/dl (7-20); CALCIUM 7.7 mg/dl (8.4-10.2); CARBON DIOXIDE 31 mmol/L (21-31); CHLORIDE 107 mmol/L (97-110); CREATININE 0.44 mg/dl (0.61-1.24); GLUCOSE 166 mg/dl (70-220); POTASSIUM 4.1 mmol/L (3.5-5.1); SODIUM 144 mmol/L (135-144)
[2018-09-01] MEDS ORDERED: PENDING SANTYL ORDER FOR WOUND CARE XX (09:00)
[2018-09-01] MEDS: CARBIDOPA/LEVODOPA (25/100) TAB GTB ×3 (09:45→20:39)
[2018-09-01] MEDS: ASPIRIN 81 MG TAB GTB (09:45)
[2018-09-01] MEDS: FERROUS SULFATE 60 MG/ML 5ML CUP GTB (09:46)
[2018-09-01] MEDS: CEFEPIME 1GM/50 ML (PMX) 50 ML IVPB ×2 (09:46→21:23)
[2018-09-01] MEDS: MULTIVITAMINS 30 ML CUP GTB (09:46)
[2018-09-01] MEDS: VALPROIC ACID LIQUID CUP 250 MG/5 ML CUP GTB (09:46)
[2018-09-01] MEDS: ENOXAPARIN 30 MG/0.3 ML SYG SC (09:52)
[2018-09-01] MEDS: COLLAGENASE 5 GM (UD JAR) TOP (10:47)
[2018-09-01] MEDS: VANCOMYCIN 750 MG in SOD CHLORIDE 0.9% 150 ML IVPB (13:56)
[2018-09-01] MEDS: DOCUSATE SODIUM 10 MG/ML (10ML CUP) GTB (20:39)
[2018-09-02] MEDS: ALBUTEROL/IPRATROPIUM (NEB) 3 ML AMP HHN ×4 (01:15→19:14)
[2018-09-02] MEDS: CARBIDOPA/LEVODOPA (25/100) TAB GTB ×3 (08:57→20:07)
[2018-09-02] MEDS: FERROUS SULFATE 60 MG/ML 5ML CUP GTB (08:57)
[2018-09-02] MEDS: CEFEPIME 1GM/50 ML (PMX) 50 ML IVPB ×2 (08:57→20:07)
[2018-09-02] MEDS: ASPIRIN 81 MG TAB GTB (08:57)
[2018-09-02] MEDS: MULTIVITAMINS 30 ML CUP GTB (08:57)
[2018-09-02] MEDS: VALPROIC ACID LIQUID CUP 250 MG/5 ML CUP GTB (08:58)
[2018-09-02] MEDS: ENOXAPARIN 30 MG/0.3 ML SYG SC (08:59)
[2018-09-02] MEDS: COLLAGENASE 5 GM (UD JAR) TOP ×2 (09:00→14:30)
[2018-09-02 09:27] LABS: ADD UMIC YES; UR ASCORBIC ACID 40 mg/dL (NEGATIVE); UR BACTERIA FEW /HPF (NONE SEEN); UR BILIRUBIN (Dip) NEGATIVE (NEGATIVE); UR BLOOD (Dip) 3+ mg/dL (NEGATIVE); UR CLARITY CLOUDY (CLEAR); UR COLOR RED (YELLOW); UR GLUCOSE (Dip) NEGATIVE (NEGATIVE); UR KETONES (Dip) NEGATIVE (NEGATIVE); UR LEUKOCYTE ESTERASE (Dip) 1+ Leu/ul (NEGATIVE); UR MUCUS MANY /HPF (NONE SEEN); UR NITRITE (Dip) NEGATIVE (NEGATIVE); UR RBC > 182 /HPF (0-5); UR SPECIFIC GRAVITY (Dip) 1.021 (1.003-1.030); UR TOTAL PROTEIN (Dip) 2+ mg/dl (NEGATIVE); UR UROBILINOGEN (Dip) 1+ mg/dL (NEGATIVE); UR WBC 128 /HPF (0-5)
[2018-09-02] MEDS ORDERED: VITAMIN A & D 5 GM OINT PACKET TOP (09:40)
[2018-09-02] MEDS: VANCOMYCIN 750 MG in SOD CHLORIDE 0.9% 150 ML IVPB (14:06)
[2018-09-02] MEDS: DOCUSATE SODIUM 10 MG/ML (10ML CUP) GTB (20:07)
[2018-09-03] MEDS: ALBUTEROL/IPRATROPIUM (NEB) 3 ML AMP HHN ×4 (01:00→22:11)
[2018-09-03 07:19] LABS: CREATININE 0.33 mg/dl (0.61-1.24)
[2018-09-03 07:19] LABS: BLOOD UREA NITROGEN 32 mg/dl (7-20)
[2018-09-03] MEDS: ASPIRIN 81 MG TAB GTB (08:28)
[2018-09-03] MEDS: MULTIVITAMINS 30 ML CUP GTB (08:28)
[2018-09-03] MEDS: VALPROIC ACID LIQUID CUP 250 MG/5 ML CUP GTB (08:28)
[2018-09-03] MEDS: FERROUS SULFATE 60 MG/ML 5ML CUP GTB (08:28)
[2018-09-03] MEDS: CARBIDOPA/LEVODOPA (25/100) TAB GTB ×3 (08:29→20:08)
[2018-09-03] MEDS: ENOXAPARIN 30 MG/0.3 ML SYG SC (08:30)
[2018-09-03] MEDS: COLLAGENASE 5 GM (UD JAR) TOP (08:30)
[2018-09-03] MEDS: CEFEPIME 1GM/50 ML (PMX) 50 ML IVPB ×2 (08:46→20:08)
[2018-09-03 14:52] LABS: VANCOMYCIN,TROUGH < 5.0 ug/ml (10.0-20.0)
[2018-09-03] MEDS: VANCOMYCIN 750 MG in SOD CHLORIDE 0.9% 150 ML IVPB (15:09)
[2018-09-03] MEDS: DOCUSATE SODIUM 10 MG/ML (10ML CUP) GTB (20:08)
[2018-09-04] MEDS: VANCOMYCIN 500MG/NS (PMX) 100 ML IVPB ×2 (02:10→13:40)
[2018-09-04] MEDS: ALBUTEROL/IPRATROPIUM (NEB) 3 ML AMP HHN ×4 (02:28→19:24)
[2018-09-04] MEDS: CEFEPIME 1GM/50 ML (PMX) 50 ML IVPB ×2 (09:10→20:00)
[2018-09-04] MEDS: ENOXAPARIN 30 MG/0.3 ML SYG SC (09:11)
[2018-09-04] MEDS: COLLAGENASE 5 GM (UD JAR) TOP (09:11)
[2018-09-04] MEDS: FERROUS SULFATE 60 MG/ML 5ML CUP GTB (09:11)
[2018-09-04] MEDS: VALPROIC ACID LIQUID CUP 250 MG/5 ML CUP GTB (09:12)
[2018-09-04] MEDS: MULTIVITAMINS 30 ML CUP GTB (09:12)
[2018-09-04] MEDS: BALSAM PERU/CASTOR OIL 60 GM TUBE TOP (09:12)
[2018-09-04] MEDS: ASPIRIN 81 MG TAB GTB (09:12)
[2018-09-04] MEDS: CARBIDOPA/LEVODOPA (25/100) TAB GTB ×3 (09:13→20:00)
[2018-09-04] MEDS: DOCUSATE SODIUM 10 MG/ML (10ML CUP) GTB (20:00)
[2018-09-05] MEDS: VANCOMYCIN 500MG/NS (PMX) 100 ML IVPB ×2 (01:31→14:50)
[2018-09-05] MEDS: ALBUTEROL/IPRATROPIUM (NEB) 3 ML AMP HHN ×4 (02:14→20:00)
[2018-09-05 05:31] LABS: ADD MAN DIFF? NO
[2018-09-05 05:37] LABS: BASOPHILS % 0.6 % (0.0-2.0); EOSINOPHILS # 0.2 10^3/ul (0.0-0.5); EOSINOPHILS % 2.9 % (0.0-7.0); HEMATOCRIT 32.2 % (42.0-52.0); HEMOGLOBIN 10.5 g/dl (14.0-18.0); LYMPHOCYTES # 0.6 10^3/ul (0.8-2.9); LYMPHOCYTES % 8.4 % (15.0-51.0); MEAN CORPUSCULAR HEMOGLOBIN 31.8 pg (29.0-33.0); MEAN CORPUSCULAR HGB CONC 32.6 g/dl (32.0-37.0); MEAN CORPUSCULAR VOLUME 97.6 fl (82.0-101.0); MONOCYTE # 0.9 10^3/ul (0.3-0.9); MONOCYTES % 11.9 % (0.0-11.0); NEUTROPHIL # 5.2 10^3/ul (1.6-7.5); NEUTROPHILS % 72.1 % (39.0-77.0); PLATELET COUNT 271 10^3/UL (140-415); RED CELL DISTRIBUTION WIDTH 12.8 % (11.5-14.5)
[2018-09-05 05:37] LABS: WHITE BLOOD COUNT 7.2 10^3/ul (4.8-10.8)
[2018-09-05 06:17] LABS: ANION GAP 3 (5-13); BLOOD UREA NITROGEN 21 mg/dl (7-20); CALCIUM 7.7 mg/dl (8.4-10.2); CARBON DIOXIDE 33 mmol/L (21-31); CHLORIDE 99 mmol/L (97-110); CREATININE 0.37 mg/dl (0.61-1.24); GLUCOSE 128 mg/dl (70-220); POTASSIUM 4.9 mmol/L (3.5-5.1); SODIUM 135 mmol/L (135-144)
[2018-09-05] MEDS: CEFEPIME 1GM/50 ML (PMX) 50 ML IVPB ×2 (08:08→21:04)
[2018-09-05] MEDS: MULTIVITAMINS 30 ML CUP GTB (08:09)
[2018-09-05] MEDS: COLLAGENASE 5 GM (UD JAR) TOP (08:09)
[2018-09-05] MEDS: ENOXAPARIN 30 MG/0.3 ML SYG SC (08:09)
[2018-09-05] MEDS: VALPROIC ACID LIQUID CUP 250 MG/5 ML CUP GTB (08:09)
[2018-09-05] MEDS: CARBIDOPA/LEVODOPA (25/100) TAB GTB ×3 (08:09→21:04)
[2018-09-05] MEDS: FERROUS SULFATE 60 MG/ML 5ML CUP GTB (08:09)
[2018-09-05] MEDS: ASPIRIN 81 MG TAB GTB (08:09)
[2018-09-05] MEDS: BALSAM PERU/CASTOR OIL 60 GM TUBE TOP (08:10)
[2018-09-05 14:41] LABS: VANCOMYCIN,TROUGH 7.9 ug/ml (10.0-20.0)
[2018-09-05] MEDS: DOCUSATE SODIUM 10 MG/ML (10ML CUP) GTB (21:04)
[2018-09-06] MEDS: ALBUTEROL/IPRATROPIUM (NEB) 3 ML AMP HHN ×4 (01:56→20:24)
[2018-09-06] MEDS: VANCOMYCIN 750 MG in SOD CHLORIDE 0.9% 150 ML IVPB ×2 (02:04→14:00)
[2018-09-06] MEDS: LORAZEPAM 2 MG INJ IV (04:35)
[2018-09-06 06:19] LABS: ADD MAN DIFF? NO
[2018-09-06 06:23] LABS: ABNORMAL IP MESSAGE 1; BASOPHILS % 0.7 % (0.0-2.0); EOSINOPHILS # 0.2 10^3/ul (0.0-0.5); HEMATOCRIT 31.7 % (42.0-52.0); HEMOGLOBIN 10.4 g/dl (14.0-18.0); LYMPHOCYTES # 0.6 10^3/ul (0.8-2.9); LYMPHOCYTES % 10.3 % (15.0-51.0); MEAN CORPUSCULAR HGB CONC 32.8 g/dl (32.0-37.0); MEAN CORPUSCULAR VOLUME 97.5 fl (82.0-101.0); MEAN PLATELET VOLUME 10.8 fl (7.4-10.4); MONOCYTE # 0.7 10^3/ul (0.3-0.9); MONOCYTES % 12.5 % (0.0-11.0); NEUTROPHIL # 3.9 10^3/ul (1.6-7.5); NEUTROPHILS % 68.5 % (39.0-77.0); PLATELET COUNT 283 10^3/UL (140-415); POSITIVE DIFF @See below; RED BLOOD COUNT 3.25 10^6/ul (4.70-6.10); RED CELL DISTRIBUTION WIDTH 12.8 % (11.5-14.5)
[2018-09-06 06:23] LABS: WHITE BLOOD COUNT 5.8 10^3/ul (4.8-10.8)
[2018-09-06 06:41] LABS: ANION GAP 4 (5-13); BLOOD UREA NITROGEN 24 mg/dl (7-20); CALCIUM 7.9 mg/dl (8.4-10.2); CARBON DIOXIDE 34 mmol/L (21-31); CHLORIDE 97 mmol/L (97-110); CREATININE 0.38 mg/dl (0.61-1.24); GLUCOSE 126 mg/dl (70-220); POTASSIUM 4.8 mmol/L (3.5-5.1); SODIUM 135 mmol/L (135-144)
[2018-09-06] MEDS: CEFEPIME 1GM/50 ML (PMX) 50 ML IVPB ×2 (08:26→21:38)
[2018-09-06] MEDS: VALPROIC ACID LIQUID CUP 250 MG/5 ML CUP GTB (08:32)
[2018-09-06] MEDS: CARBIDOPA/LEVODOPA (25/100) TAB GTB ×3 (08:32→21:38)
[2018-09-06] MEDS: MULTIVITAMINS 30 ML CUP GTB (08:33)
[2018-09-06] MEDS: FERROUS SULFATE 60 MG/ML 5ML CUP GTB (08:33)
[2018-09-06] MEDS: ASPIRIN 81 MG TAB GTB (08:33)
[2018-09-06] MEDS: ENOXAPARIN 30 MG/0.3 ML SYG SC (08:34)
[2018-09-06] MEDS: BALSAM PERU/CASTOR OIL 60 GM TUBE TOP (09:26)
[2018-09-06] MEDS: COLLAGENASE 5 GM (UD JAR) TOP (09:26)
[2018-09-06] MEDS: DOCUSATE SODIUM 10 MG/ML (10ML CUP) GTB (21:38)
[2018-09-07] MEDS: ALBUTEROL/IPRATROPIUM (NEB) 3 ML AMP HHN ×4 (02:00→20:02)
[2018-09-07] MEDS: VANCOMYCIN 750 MG in SOD CHLORIDE 0.9% 150 ML IVPB ×2 (02:18→13:34)
[2018-09-07] MEDS: CEFEPIME 1GM/50 ML (PMX) 50 ML IVPB ×2 (09:22→20:26)
[2018-09-07] MEDS: ASPIRIN 81 MG TAB GTB (09:22)
[2018-09-07] MEDS: VALPROIC ACID LIQUID CUP 250 MG/5 ML CUP GTB (09:22)
[2018-09-07] MEDS: FERROUS SULFATE 60 MG/ML 5ML CUP GTB (09:22)
[2018-09-07] MEDS: MULTIVITAMINS 30 ML CUP GTB (09:22)
[2018-09-07] MEDS: CARBIDOPA/LEVODOPA (25/100) TAB GTB ×3 (09:22→20:26)
[2018-09-07] MEDS: BALSAM PERU/CASTOR OIL 60 GM TUBE TOP (09:23)
[2018-09-07] MEDS: COLLAGENASE 5 GM (UD JAR) TOP (09:23)
[2018-09-07] MEDS: ENOXAPARIN 30 MG/0.3 ML SYG SC (09:24)
[2018-09-07] MEDS: DOCUSATE SODIUM 10 MG/ML (10ML CUP) GTB (20:26)
[2018-09-08 01:47] LABS: VANCOMYCIN,TROUGH 11.3 ug/ml (10.0-20.0)
[2018-09-08] MEDS: ALBUTEROL/IPRATROPIUM (NEB) 3 ML AMP HHN ×4 (02:35→21:32)
[2018-09-08] MEDS: VANCOMYCIN 750 MG in SOD CHLORIDE 0.9% 150 ML IVPB ×2 (02:47→13:43)
[2018-09-08] MEDS: VALPROIC ACID LIQUID CUP 250 MG/5 ML CUP GTB (08:16)
[2018-09-08] MEDS: CEFEPIME 1GM/50 ML (PMX) 50 ML IVPB ×2 (08:17→21:51)
[2018-09-08] MEDS: ENOXAPARIN 30 MG/0.3 ML SYG SC (08:17)
[2018-09-08] MEDS: FERROUS SULFATE 60 MG/ML 5ML CUP GTB (08:17)
[2018-09-08] MEDS: CARBIDOPA/LEVODOPA (25/100) TAB GTB ×3 (08:17→21:51)
[2018-09-08] MEDS: ASPIRIN 81 MG TAB GTB (08:17)
[2018-09-08] MEDS: MULTIVITAMINS 30 ML CUP GTB (08:17)
[2018-09-08] MEDS: BALSAM PERU/CASTOR OIL 60 GM TUBE TOP (08:18)
[2018-09-08] MEDS: COLLAGENASE 5 GM (UD JAR) TOP (08:18)
[2018-09-08] MEDS: DOCUSATE SODIUM 10 MG/ML (10ML CUP) GTB (21:51)
[2018-09-09] MEDS: ALBUTEROL/IPRATROPIUM (NEB) 3 ML AMP HHN ×4 (02:17→19:54)
[2018-09-09] MEDS: VANCOMYCIN 750 MG in SOD CHLORIDE 0.9% 150 ML IVPB ×2 (02:49→14:19)
[2018-09-09 05:23] LABS: ADD MAN DIFF? NO
[2018-09-09 05:41] LABS: WHITE BLOOD COUNT 5.9 10^3/ul (4.8-10.8)
[2018-09-09 05:41] LABS: BASOPHILS % 0.5 % (0.0-2.0); EOSINOPHILS # 0.2 10^3/ul (0.0-0.5); EOSINOPHILS % 3.7 % (0.0-7.0); HEMATOCRIT 31.4 % (42.0-52.0); LYMPHOCYTES # 0.8 10^3/ul (0.8-2.9); MEAN CORPUSCULAR HEMOGLOBIN 31.6 pg (29.0-33.0); MEAN CORPUSCULAR HGB CONC 31.8 g/dl (32.0-37.0); MEAN CORPUSCULAR VOLUME 99.4 fl (82.0-101.0); MEAN PLATELET VOLUME 11.2 fl (7.4-10.4); MONOCYTE # 0.8 10^3/ul (0.3-0.9); MONOCYTES % 13.3 % (0.0-11.0); PLATELET COUNT 273 10^3/UL (140-415); RED BLOOD COUNT 3.16 10^6/ul (4.70-6.10); RED CELL DISTRIBUTION WIDTH 12.8 % (11.5-14.5)
[2018-09-09 06:06] LABS: BLOOD UREA NITROGEN 24 mg/dl (7-20)
[2018-09-09 06:07] LABS: ANION GAP 3 (5-13); BLOOD UREA NITROGEN 25 mg/dl (7-20); CARBON DIOXIDE 34 mmol/L (21-31); CHLORIDE 99 mmol/L (97-110); CREATININE 0.38 mg/dl (0.61-1.24); GLUCOSE 113 mg/dl (70-220); POTASSIUM 4.8 mmol/L (3.5-5.1); SODIUM 136 mmol/L (135-144)
[2018-09-09] MEDS: CEFEPIME 1GM/50 ML (PMX) 50 ML IVPB ×2 (08:58→21:03)
[2018-09-09] MEDS: MULTIVITAMINS 30 ML CUP GTB (08:58)
[2018-09-09] MEDS: COLLAGENASE 5 GM (UD JAR) TOP (08:58)
[2018-09-09] MEDS: FERROUS SULFATE 60 MG/ML 5ML CUP GTB (08:58)
[2018-09-09] MEDS: ASPIRIN 81 MG TAB GTB (08:59)
[2018-09-09] MEDS: CARBIDOPA/LEVODOPA (25/100) TAB GTB ×3 (08:59→21:02)
[2018-09-09] MEDS: BALSAM PERU/CASTOR OIL 60 GM TUBE TOP (09:00)
[2018-09-09] MEDS: VALPROIC ACID LIQUID CUP 250 MG/5 ML CUP GTB (09:00)
[2018-09-09] MEDS: ENOXAPARIN 30 MG/0.3 ML SYG SC (09:02)
[2018-09-09] MEDS: DOCUSATE SODIUM 10 MG/ML (10ML CUP) GTB (21:02)
[2018-09-10] MEDS: ALBUTEROL/IPRATROPIUM (NEB) 3 ML AMP HHN ×4 (01:20→20:17)
[2018-09-10] MEDS: VANCOMYCIN 750 MG in SOD CHLORIDE 0.9% 150 ML IVPB ×2 (02:42→14:11)
[2018-09-10] MEDS: LORAZEPAM 2 MG INJ IV (08:33)
[2018-09-10] MEDS: CEFEPIME 1GM/50 ML (PMX) 50 ML IVPB ×2 (08:38→20:43)
[2018-09-10] MEDS: MULTIVITAMINS 30 ML CUP GTB (08:42)
[2018-09-10] MEDS: VALPROIC ACID LIQUID CUP 250 MG/5 ML CUP GTB (08:42)
[2018-09-10] MEDS: ASPIRIN 81 MG TAB GTB (08:42)
[2018-09-10] MEDS: CARBIDOPA/LEVODOPA (25/100) TAB GTB ×3 (08:42→20:43)
[2018-09-10] MEDS: FERROUS SULFATE 60 MG/ML 5ML CUP GTB (08:42)
[2018-09-10] MEDS: ENOXAPARIN 30 MG/0.3 ML SYG SC (08:44)
[2018-09-10] MEDS: COLLAGENASE 5 GM (UD JAR) TOP (09:05)
[2018-09-10] MEDS: BALSAM PERU/CASTOR OIL 60 GM TUBE TOP (09:05)
[2018-09-10] MEDS: DOCUSATE SODIUM 10 MG/ML (10ML CUP) GTB (20:43)
[2018-09-11] MEDS: ALBUTEROL/IPRATROPIUM (NEB) 3 ML AMP HHN ×3 (01:42→14:06)
[2018-09-11] MEDS: VANCOMYCIN 750 MG in SOD CHLORIDE 0.9% 150 ML IVPB (02:41)
[2018-09-11 05:59] LABS: ADD MAN DIFF? NO
[2018-09-11 06:03] LABS: WHITE BLOOD COUNT 5.9 10^3/ul (4.8-10.8)
[2018-09-11 06:03] LABS: BASOPHILS % 0.5 % (0.0-2.0); EOSINOPHILS # 0.3 10^3/ul (0.0-0.5); EOSINOPHILS % 5.8 % (0.0-7.0); HEMOGLOBIN 10.4 g/dl (14.0-18.0); LYMPHOCYTES # 0.9 10^3/ul (0.8-2.9); LYMPHOCYTES % 14.5 % (15.0-51.0); MEAN CORPUSCULAR HEMOGLOBIN 32.1 pg (29.0-33.0); MEAN CORPUSCULAR HGB CONC 32.5 g/dl (32.0-37.0); MEAN CORPUSCULAR VOLUME 98.8 fl (82.0-101.0); MEAN PLATELET VOLUME 11.3 fl (7.4-10.4); MONOCYTE # 0.8 10^3/ul (0.3-0.9); MONOCYTES % 12.9 % (0.0-11.0); NEUTROPHIL # 3.8 10^3/ul (1.6-7.5); NEUTROPHILS % 64.9 % (39.0-77.0); PLATELET COUNT 280 10^3/UL (140-415); RED BLOOD COUNT 3.24 10^6/ul (4.70-6.10); RED CELL DISTRIBUTION WIDTH 12.9 % (11.5-14.5)
[2018-09-11 07:04] LABS: ANION GAP 3 (5-13); BLOOD UREA NITROGEN 22 mg/dl (7-20); CARBON DIOXIDE 33 mmol/L (21-31); CHLORIDE 103 mmol/L (97-110); CREATININE 0.39 mg/dl (0.61-1.24); GLUCOSE 113 mg/dl (70-220); POTASSIUM 4.5 mmol/L (3.5-5.1); SODIUM 139 mmol/L (135-144)
[2018-09-11] MEDS: VALPROIC ACID LIQUID CUP 250 MG/5 ML CUP GTB (08:50)
[2018-09-11] MEDS: MULTIVITAMINS 30 ML CUP GTB (08:50)
[2018-09-11] MEDS: FERROUS SULFATE 60 MG/ML 5ML CUP GTB (08:50)
[2018-09-11] MEDS: CARBIDOPA/LEVODOPA (25/100) TAB GTB ×2 (08:50→12:48)
[2018-09-11] MEDS: ASPIRIN 81 MG TAB GTB (08:50)
[2018-09-11] MEDS: ENOXAPARIN 30 MG/0.3 ML SYG SC (08:51)
[2018-09-11] MEDS: BALSAM PERU/CASTOR OIL 60 GM TUBE TOP (08:52)
[2018-09-11] MEDS: COLLAGENASE 5 GM (UD JAR) TOP (08:52)
== END 2018-09-11 19:09 | DRG 871 ==
LOC: E/R 13:44 → PP2 13:56
DX: A41.9 Sepsis, unspecified organism (principal); J96.01 Acute respiratory failure with hypoxia; J69.0 Pneumonitis due to inhalation of food and vomit; Z68.1 Body mass index [BMI] 19.9 or less, adult; N39.0 Urinary tract infection, site not specified; I50.42 Chronic combined systolic (congestive) and diastolic (congestive) heart failure; I48.0 Paroxysmal atrial fibrillation; Y95 Nosocomial condition; R13.10 Dysphagia, unspecified; I51.7 Cardiomegaly; M24.50 Contracture, unspecified joint; M62.50 Muscle wasting and atrophy, not elsewhere classified, unspecified site; Z93.1 Gastrostomy status; G31.83 Neurocognitive disorder with Lewy bodies; F02.80 Dementia in other diseases classified elsewhere, unspecified severity, without behavioral disturbance, psychotic disturbance, mood disturbance, and anxiety; R65.20 Severe sepsis without septic shock
CPT/HCPCS: 36415; 71045; 80048; 80202; 81001; 82565; 83605; 84484; 84520; 85025; 85610; 85730; 87040; 87045; 87081; 87086; 93005; 94640; 94664; 99291-25

== ENCOUNTER 2018-09-21 18:41 | Inpatient (IN) | payer MEDICARE, BC ==
[~2018-09-21 18:41] MED LIST: ETOMIDATE 20 MG INJ
[2018-09-21] MEDS: ETOMIDATE 20 MG INJ IV (18:54)
[2018-09-21] MEDS: ROCURONIUM 50 MG INJ IV (18:54)
[2018-09-21] MEDS ORDERED: PROPOFOL 100 ML (18:56)
[2018-09-21] MEDS: SODIUM CHLORIDE 0.9% 1L BAG IV* (19:06)
[2018-09-21 19:16] LABS: ADD MAN DIFF? NO
[2018-09-21] MEDS: CEFEPIME 2GM/50 ML (PMX) 50 ML IVPB (19:17)
[2018-09-21] MEDS: PROPOFOL 100 ML IV (19:22)
[2018-09-21 19:23] LABS: BASOPHILS % 0.1 % (0.0-2.0); EOSINOPHILS % 0.1 % (0.0-7.0); HEMATOCRIT 37.1 % (42.0-52.0); HEMOGLOBIN 12.1 g/dl (14.0-18.0); LYMPHOCYTES # 0.9 10^3/ul (0.8-2.9); LYMPHOCYTES % 6.3 % (15.0-51.0); MEAN CORPUSCULAR HEMOGLOBIN 31.4 pg (29.0-33.0); MEAN CORPUSCULAR HGB CONC 32.6 g/dl (32.0-37.0); MEAN CORPUSCULAR VOLUME 96.4 fl (82.0-101.0); MEAN PLATELET VOLUME 11.3 fl (7.4-10.4); MONOCYTE # 1.3 10^3/ul (0.3-0.9); MONOCYTES % 9.3 % (0.0-11.0); NEUTROPHIL # 11.7 10^3/ul (1.6-7.5); NEUTROPHILS % 83.3 % (39.0-77.0); PLATELET COUNT 394 10^3/UL (140-415); RED BLOOD COUNT 3.85 10^6/ul (4.70-6.10); RED CELL DISTRIBUTION WIDTH 13.2 % (11.5-14.5)
[2018-09-21 19:47] LABS: ALBUMIN 3.1 g/dl (3.3-4.9); ALBUMIN/GLOBULIN RATIO 0.63; ALKALINE PHOSPHATASE 92 IU/L (42-121); ANION GAP 9 (5-13); ASPARTATE AMINO TRANSFERASE 57 IU/L (15-46); BILIRUBIN,INDIRECT 0.5 mg/dl (0-1.1); BILIRUBIN,TOTAL 0.5 mg/dl (0.2-1.3); BLOOD UREA NITROGEN 38 mg/dl (7-20); CALCIUM 8.1 mg/dl (8.4-10.2); CARBON DIOXIDE 28 mmol/L (21-31); CHLORIDE 99 mmol/L (97-110); CREATININE 0.45 mg/dl (0.61-1.24); GLUCOSE 160 mg/dl (70-220); POTASSIUM 4.8 mmol/L (3.5-5.1); SODIUM 136 mmol/L (135-144)
[2018-09-21 19:49] LABS: ALANINE AMINOTRANSFERASE < 6 IU/L (13-69)
[2018-09-21] MEDS: ACETAMINOPHEN 650MG/20.3ML CUP GTB (19:53)
[2018-09-21 19:58] LABS: ADD UMIC YES; UR ASCORBIC ACID 40 mg/dL (NEGATIVE); UR BILIRUBIN (Dip) NEGATIVE (NEGATIVE); UR BLOOD (Dip) NEGATIVE (NEGATIVE); UR CLARITY SLIGHTLY CLOUDY (CLEAR); UR COLOR AMBER (YELLOW); UR GLUCOSE (Dip) NEGATIVE (NEGATIVE); UR KETONES (Dip) TRACE mg/dL (NEGATIVE); UR LEUKOCYTE ESTERASE (Dip) TRACE Leu/ul (NEGATIVE); UR MUCUS MODERATE /HPF (NONE SEEN); UR NITRITE (Dip) NEGATIVE (NEGATIVE); UR RBC 108 /HPF (0-5); UR SPECIFIC GRAVITY (Dip) 1.024 (1.003-1.030); UR TOTAL PROTEIN (Dip) 2+ mg/dl (NEGATIVE); UR UROBILINOGEN (Dip) 2+ mg/dL (NEGATIVE); UR WBC 16 /HPF (0-5)
[2018-09-21] MEDS: VANCOMYCIN 1 GM (PMX) 250 ML IVPB (20:04)
[2018-09-21 20:06] LABS: B-TYPE NATRIURETIC PEPTIDE 1870 PG/ML (0-450); TROPONIN-I 0.037 ng/ml (0.000-0.120)
[2018-09-21 20:09] LABS: INR 1.23; PROTIME 15.7 Sec (11.9-14.9); PT RATIO 1.2
[2018-09-21 20:19] LABS: PARTIAL THROMBOPLASTIN TIME 30.6 Sec (23.0-35.0)
[2018-09-21] MEDS ORDERED: ONDANSETRON 4 MG INJ IV (20:30)
[2018-09-21] MEDS ORDERED: VANCOMYCIN IV PER PHARMACY XX (20:30)
[2018-09-21 20:42] LABS: AADO2 Arterial 186.8 mmHg (7.0-24.0); Arterial Base Excess -0.8 mmol/L (-3.0-3); Arterial Blood Gas Oxygen Sat 99.7 mmHG (95.0-100.0); Arterial COHb 0.3 % (0.0-3.0); Arterial Fraction of Oxyhgb 98.8 % (93.0-99.0); Arterial HCO3 25.6 mmol/L (22.0-26.0); Arterial MetHb 0.6 % (0.0-1.5); Arterial pCO2 50.2 mmhg (35-45); MODE VENT - AC; Site Right Brachial
[2018-09-21 20:55] LABS: HEMOGLOBIN A1C 5.3 % (0-5.9)
[2018-09-21] MEDS: ALBUTEROL/IPRATROPIUM (NEB) 3 ML AMP NEB (22:00)
[2018-09-21] MEDS ORDERED: CEFEPIME 2GM/50 ML (PMX) 50 ML IVPB (22:00)
[2018-09-21] MEDS: FAMOTIDINE 20 MG INJ IV (22:47)
[2018-09-21] MEDS: SOD CHLORIDE 0.9% 1,000 ML IV (22:47)
[2018-09-22 00:54] LABS: LACTIC ACID 4.8 mmol/L (0.5-2.0)
[2018-09-22] MEDS: ALBUTEROL/IPRATROPIUM (NEB) 3 ML AMP NEB ×3 (01:32→09:12)
[2018-09-22] MEDS: MIDAZOLAM (DRIP) 50 mg/50 mL 50 ML IV (02:47)
[2018-09-22] MEDS: DILTIAZEM-D5W 125MG/125ML DRIP 125 ML IV (03:47)
[2018-09-22] MEDS: CEFEPIME 2GM/50 ML (PMX) 50 ML IVPB ×3 (07:43→22:00)
[2018-09-22] MEDS: SOD CHLORIDE 0.9% 1,000 ML IV ×2 (07:45→18:12)
[2018-09-22] MEDS: VANCOMYCIN 750 MG in SOD CHLORIDE 0.9% 150 ML IVPB ×2 (08:51→21:23)
[2018-09-22] MEDS: ENOXAPARIN 30 MG/0.3 ML SYG SC (09:07)
[2018-09-22] MEDS: FAMOTIDINE 20 MG INJ IV ×2 (09:08→20:31)
[2018-09-22] MEDS: ADENOSINE 6 MG INJ IV ×2 (11:00)
[2018-09-22] MEDS ORDERED: NORepinephrine 8MG/250 ML (PMX 250 ML IV (11:00)
[2018-09-22] MEDS ORDERED: ALBUTEROL 0.083% (NEB) 2.5 MG/3 ML AMP NEB (11:30)
[2018-09-22] MEDS ORDERED: ALBUTEROL/IPRATROPIUM (NEB) 3 ML AMP INH (11:30)
[2018-09-22] MEDS ORDERED: MAGNESIUM HYDROXIDE 30ML CUP GTB (11:30)
[2018-09-22] MEDS ORDERED: MINERAL OIL 133 ML ENEMA PR (12:00)
[2018-09-22] MEDS ORDERED: ONDANSETRON 4 MG TAB GTB (12:00)
[2018-09-22] MEDS: ACETAMINOPHEN 650 MG SUPP PR (12:03)
[2018-09-22] MEDS: PROPOFOL 100 ML IV ×2 (12:32→16:30)
[2018-09-22] MEDS ORDERED: NON-FORMULARY/PATIENT OWN MED (Carbidopa/Levodopa (Carbidopa-Levo 25-100 Mg Odt) 1 TAB) GTB (13:00)
[2018-09-22] MEDS: CARBIDOPA/LEVODOPA (25/100) TAB GTB ×2 (13:54→20:31)
[2018-09-22 20:26] LABS: ANION GAP 8 (5-13); BLOOD UREA NITROGEN 50 mg/dl (7-20); CALCIUM 7.5 mg/dl (8.4-10.2); CARBON DIOXIDE 23 mmol/L (21-31); CHLORIDE 108 mmol/L (97-110); CREATININE 0.64 mg/dl (0.61-1.24); GLUCOSE 98 mg/dl (70-220); MAGNESIUM 2.1 mg/dl (1.7-2.5); POTASSIUM 4.3 mmol/L (3.5-5.1); SODIUM 139 mmol/L (135-144)
[2018-09-22 20:28] LABS: LACTIC ACID 2.3 mmol/L (0.5-2.0)
[2018-09-22] MEDS: ASCORBIC ACID 500 MG TAB GTB (20:32)
[2018-09-23] MEDS: CEFEPIME 2GM/50 ML (PMX) 50 ML IVPB ×4 (01:05→22:51)
[2018-09-23] MEDS: SOD CHLORIDE 0.9% 1,000 ML IV ×3 (02:12→20:30)
[2018-09-23 04:19] LABS: WHITE BLOOD COUNT 12.1 10^3/ul (4.8-10.8)
[2018-09-23 04:19] LABS: HEMATOCRIT 29.8 % (42.0-52.0); HEMOGLOBIN 9.3 g/dl (14.0-18.0); MEAN CORPUSCULAR HEMOGLOBIN 31.3 pg (29.0-33.0); MEAN CORPUSCULAR HGB CONC 31.2 g/dl (32.0-37.0); MEAN CORPUSCULAR VOLUME 100.3 fl (82.0-101.0); MEAN PLATELET VOLUME 11.5 fl (7.4-10.4); PLATELET COUNT 177 10^3/UL (140-415); POSITIVE DIFF @See below; RED BLOOD COUNT 2.97 10^6/ul (4.70-6.10); RED CELL DISTRIBUTION WIDTH 13.2 % (11.5-14.5)
[2018-09-23 04:24] LABS: ADD MAN DIFF? YES
[2018-09-23 04:36] LABS: MAGNESIUM 2.2 mg/dl (1.7-2.5); PHOSPHORUS 4.2 mg/dl (2.5-4.9)
[2018-09-23 04:37] LABS: BLOOD UREA NITROGEN 50 mg/dl (7-20); CALCIUM 7.8 mg/dl (8.4-10.2); CARBON DIOXIDE 24 mmol/L (21-31); CREATININE 0.56 mg/dl (0.61-1.24); GLUCOSE 82 mg/dl (70-220); POTASSIUM 4.1 mmol/L (3.5-5.1); SODIUM 141 mmol/L (135-144)
[2018-09-23 04:38] LABS: ANION GAP 7 (5-13); CHLORIDE 110 mmol/L (97-110)
[2018-09-23 04:46] LABS: BAND NEUTROPHILS #M 3.3 10^3/ul (0.0-0.6); BAND NEUTROPHILS % (M) 28 % (0-4); EOSINOPHILS % (M) 2 % (0-7); LYMPHOCYTES #M 0.7 10^3/ul (0.8-2.9); LYMPHOCYTES % (M) 6 % (15-51); METAMYELOCYTES #M 0.2 10^3/ul (0.0-0.0); METAMYELOCYTES %M 2 % (0-0); MONOCYTE #M 0.4 10^3/ul (0.3-0.9); MONOCYTES % (M) 4 % (0-11); PLATELET ESTIMATE NORMAL; REACTIVE LYMPHOCYTES #M 0.1 10^3/ul (0.0-0.0); REACTIVE LYMPHOCYTES% (M) 1 % (0-0); SEG NEUT #M 7.3 10^3/ul (1.6-7.5); SEGMENTED NEUTROPHILS (M) % 57 % (39-77); SMUDGE%M 5 % (0-0)
[2018-09-23 07:15] LABS: VANCOMYCIN,TROUGH 14.2 ug/ml (10.0-20.0)
[2018-09-23] MEDS: VANCOMYCIN 750 MG in SOD CHLORIDE 0.9% 150 ML IVPB ×2 (08:38→20:29)
[2018-09-23] MEDS: DILTIAZEM-D5W 125MG/125ML DRIP 125 ML IV (09:03)
[2018-09-23] MEDS: DIVALPROEX (EC) 250 MG TAB PO (09:24)
[2018-09-23] MEDS: ZINC SULFATE 220 MG CAP GTB (09:24)
[2018-09-23] MEDS: ASPIRIN 81 MG TAB GTB (09:25)
[2018-09-23] MEDS: CARBIDOPA/LEVODOPA (25/100) TAB GTB ×3 (09:25→20:35)
[2018-09-23] MEDS: FAMOTIDINE 20 MG INJ IV ×2 (09:25→20:35)
[2018-09-23] MEDS: ASCORBIC ACID 500 MG TAB GTB ×2 (09:25→20:35)
[2018-09-23] MEDS ORDERED: AMIODARONE 150MG/D5W BOLUS 100 ML (10:03)
[2018-09-23] MEDS: AMIODARONE 150MG/D5W BOLUS 100 ML IV (10:13)
[2018-09-23] MEDS: DIGOXIN 0.125 MG TAB GTB (10:23)
[2018-09-23] MEDS: PROPOFOL 100 ML IV ×2 (10:24→18:19)
[2018-09-23] MEDS: AMIODARONE 200 MG TAB GTB (12:12)
[2018-09-23] MEDS: ENOXAPARIN 30 MG/0.3 ML SYG SC (12:20)
[2018-09-24] MEDS: CEFEPIME 2GM/50 ML (PMX) 50 ML IVPB ×2 (05:12→20:06)
[2018-09-24 07:14] LABS: ADD MAN DIFF? NO
[2018-09-24 07:20] LABS: ABNORMAL IP MESSAGE 1; BASOPHILS % 0.2 % (0.0-2.0); EOSINOPHILS # 0.1 10^3/ul (0.0-0.5); EOSINOPHILS % 1.1 % (0.0-7.0); HEMATOCRIT 30.2 % (42.0-52.0); HEMOGLOBIN 9.4 g/dl (14.0-18.0); LYMPHOCYTES # 0.5 10^3/ul (0.8-2.9); LYMPHOCYTES % 4.3 % (15.0-51.0); MEAN CORPUSCULAR HEMOGLOBIN 31.4 pg (29.0-33.0); MEAN CORPUSCULAR HGB CONC 31.1 g/dl (32.0-37.0); MEAN PLATELET VOLUME 11.9 fl (7.4-10.4); MONOCYTE # 0.9 10^3/ul (0.3-0.9); MONOCYTES % 6.8 % (0.0-11.0); NEUTROPHIL # 10.7 10^3/ul (1.6-7.5); NEUTROPHILS % 85.8 % (39.0-77.0); PLATELET COUNT 217 10^3/UL (140-415); POSITIVE DIFF @See below; RED BLOOD COUNT 2.99 10^6/ul (4.70-6.10); RED CELL DISTRIBUTION WIDTH 13.2 % (11.5-14.5)
[2018-09-24 07:20] LABS: WHITE BLOOD COUNT 12.4 10^3/ul (4.8-10.8)
[2018-09-24 07:37] LABS: ANION GAP 5 (5-13); BLOOD UREA NITROGEN 45 mg/dl (7-20); CALCIUM 7.8 mg/dl (8.4-10.2); CARBON DIOXIDE 23 mmol/L (21-31); CHLORIDE 114 mmol/L (97-110); CREATININE 0.44 mg/dl (0.61-1.24); GLUCOSE 119 mg/dl (70-220); MAGNESIUM 2.1 mg/dl (1.7-2.5); PHOSPHORUS 2.7 mg/dl (2.5-4.9); POTASSIUM 3.8 mmol/L (3.5-5.1); SODIUM 142 mmol/L (135-144)
[2018-09-24] MEDS: DIVALPROEX (EC) 250 MG TAB PO (09:00)
[2018-09-24] MEDS: ZINC SULFATE 220 MG CAP GTB (09:20)
[2018-09-24] MEDS: ASCORBIC ACID 500 MG TAB GTB ×2 (09:20→20:06)
[2018-09-24] MEDS: CARBIDOPA/LEVODOPA (25/100) TAB GTB ×3 (09:20→20:07)
[2018-09-24] MEDS: ASPIRIN 81 MG TAB GTB (09:20)
[2018-09-24] MEDS: AMIODARONE 200 MG TAB GTB ×2 (09:20→20:07)
[2018-09-24] MEDS: VANCOMYCIN 750 MG in SOD CHLORIDE 0.9% 150 ML IVPB ×2 (09:20→20:06)
[2018-09-24] MEDS: ENOXAPARIN 30 MG/0.3 ML SYG SC (09:21)
[2018-09-24] MEDS: FAMOTIDINE 20 MG INJ IV (09:21)
[2018-09-24] MEDS: SOD CHLORIDE 0.9% 1,000 ML IV ×2 (09:29→18:44)
[2018-09-24] MEDS: DIGOXIN 0.125 MG TAB GTB (12:26)
[2018-09-24] MEDS: PROPOFOL 100 ML IV (12:27)
[2018-09-24] MEDS: LIDOCAINE 1% (MPF) 5 ML VIAL INJ (12:28)
[2018-09-24] MEDS: BALSAM PERU/CASTOR OIL 60 GM TUBE TOP (15:54)
[2018-09-24] MEDS: METOPROLOL 25 MG TAB PO ×2 (15:54→20:08)
[2018-09-24] MEDS: POTASSIUM CHLORIDE 20 MEQ POWDER FOR ORAL SOLN GTB (16:30)
[2018-09-24] MEDS: morphine 2 MG INJ IV (21:35)
[2018-09-25] MEDS: PROPOFOL 100 ML IV ×3 (00:30→13:41)
[2018-09-25] MEDS: SOD CHLORIDE 0.9% 1,000 ML IV (04:28)
[2018-09-25] MEDS: morphine 2 MG INJ IV (04:43)
[2018-09-25 07:57] LABS: ADD MAN DIFF? NO
[2018-09-25 08:02] LABS: WHITE BLOOD COUNT 9.4 10^3/ul (4.8-10.8)
[2018-09-25 08:02] LABS: BASOPHIL # 0.1 10^3/ul (0.0-0.1); BASOPHILS % 0.5 % (0.0-2.0); EOSINOPHILS # 0.2 10^3/ul (0.0-0.5); EOSINOPHILS % 2.2 % (0.0-7.0); HEMATOCRIT 27.1 % (42.0-52.0); HEMOGLOBIN 8.4 g/dl (14.0-18.0); LYMPHOCYTES % 11.1 % (15.0-51.0); MEAN CORPUSCULAR HEMOGLOBIN 31.2 pg (29.0-33.0); MEAN CORPUSCULAR VOLUME 100.7 fl (82.0-101.0); MEAN PLATELET VOLUME 11.7 fl (7.4-10.4); MONOCYTE # 0.9 10^3/ul (0.3-0.9); MONOCYTES % 9.7 % (0.0-11.0); NEUTROPHIL # 6.7 10^3/ul (1.6-7.5); NEUTROPHILS % 71.7 % (39.0-77.0); PLATELET COUNT 250 10^3/UL (140-415); RED BLOOD COUNT 2.69 10^6/ul (4.70-6.10); RED CELL DISTRIBUTION WIDTH 13.2 % (11.5-14.5)
[2018-09-25 08:21] LABS: MAGNESIUM 1.8 mg/dl (1.7-2.5)
[2018-09-25 08:24] LABS: ANION GAP 6 (5-13); BLOOD UREA NITROGEN 27 mg/dl (7-20); CALCIUM 7.7 mg/dl (8.4-10.2); CARBON DIOXIDE 29 mmol/L (21-31); CHLORIDE 108 mmol/L (97-110); CREATININE 0.39 mg/dl (0.61-1.24); GLUCOSE 95 mg/dl (70-220); POTASSIUM 3.8 mmol/L (3.5-5.1); SODIUM 143 mmol/L (135-144)
[2018-09-25] MEDS: ZINC SULFATE 220 MG CAP GTB (08:26)
[2018-09-25] MEDS: ASPIRIN 81 MG TAB GTB (08:26)
[2018-09-25] MEDS: AMIODARONE 200 MG TAB GTB ×2 (08:27→21:42)
[2018-09-25] MEDS: CARBIDOPA/LEVODOPA (25/100) TAB GTB ×3 (08:27→21:41)
[2018-09-25] MEDS: METOPROLOL 25 MG TAB PO ×2 (08:27→21:42)
[2018-09-25] MEDS: DIVALPROEX (EC) 250 MG TAB PO (08:27)
[2018-09-25] MEDS: ASCORBIC ACID 500 MG TAB GTB ×2 (08:27→21:41)
[2018-09-25] MEDS: FAMOTIDINE 20 MG TAB GTB (08:27)
[2018-09-25] MEDS: ENOXAPARIN 30 MG/0.3 ML SYG SC (08:31)
[2018-09-25] MEDS: VANCOMYCIN 750 MG in SOD CHLORIDE 0.9% 150 ML IVPB ×2 (09:00→20:23)
[2018-09-25] MEDS: CEFEPIME 2GM/50 ML (PMX) 50 ML IVPB ×2 (09:14→21:42)
[2018-09-25] MEDS: BALSAM PERU/CASTOR OIL 60 GM TUBE TOP (09:14)
[2018-09-25] MEDS: MAGNESIUM SULFATE 2 GM/50 ML 50 ML IVPB (10:20)
[2018-09-25] MEDS: DIGOXIN 0.125 MG TAB GTB (13:41)
[2018-09-26] MEDS: PROPOFOL 100 ML IV ×2 (04:22→15:33)
[2018-09-26 05:32] LABS: DIGOXIN 0.6 ng/ml (1.0-2.0)
[2018-09-26 05:33] LABS: ALANINE AMINOTRANSFERASE 31 IU/L (13-69); ALBUMIN 1.9 g/dl (3.3-4.9); ALBUMIN/GLOBULIN RATIO 0.59; ALKALINE PHOSPHATASE 91 IU/L (42-121); ANION GAP 5 (5-13); ASPARTATE AMINO TRANSFERASE 56 IU/L (15-46); BILIRUBIN,INDIRECT 0.1 mg/dl (0-1.1); BILIRUBIN,TOTAL 0.1 mg/dl (0.2-1.3); BLOOD UREA NITROGEN 24 mg/dl (7-20); CALCIUM 7.1 mg/dl (8.4-10.2); CARBON DIOXIDE 30 mmol/L (21-31); CHLORIDE 106 mmol/L (97-110); CREATININE 0.42 mg/dl (0.61-1.24); GLUCOSE 158 mg/dl (70-220); MAGNESIUM 2.2 mg/dl (1.7-2.5); POTASSIUM 3.6 mmol/L (3.5-5.1); SODIUM 141 mmol/L (135-144); TOTAL PROTEIN 5.1 g/dl (6.1-8.1)
[2018-09-26] MEDS: VANCOMYCIN 750 MG in SOD CHLORIDE 0.9% 150 ML IVPB (08:34)
[2018-09-26] MEDS: ASPIRIN 81 MG TAB GTB (08:37)
[2018-09-26] MEDS: CARBIDOPA/LEVODOPA (25/100) TAB GTB ×3 (08:37→20:29)
[2018-09-26] MEDS: FAMOTIDINE 20 MG TAB GTB (08:38)
[2018-09-26] MEDS: ZINC SULFATE 220 MG CAP GTB (08:38)
[2018-09-26] MEDS: ASCORBIC ACID 500 MG TAB GTB ×2 (08:38→20:29)
[2018-09-26] MEDS: AMIODARONE 200 MG TAB GTB ×2 (08:38→20:29)
[2018-09-26] MEDS: METOPROLOL 25 MG TAB PO ×2 (08:39→20:30)
[2018-09-26] MEDS: ENOXAPARIN 30 MG/0.3 ML SYG SC (08:52)
[2018-09-26] MEDS: BALSAM PERU/CASTOR OIL 60 GM TUBE TOP (09:10)
[2018-09-26] MEDS: CEFEPIME 2GM/50 ML (PMX) 50 ML IVPB ×2 (09:10→20:29)
[2018-09-26] MEDS: VALPROIC ACID LIQUID CUP 250 MG/5 ML CUP PO (11:22)
[2018-09-26] MEDS: POTASSIUM CHLORIDE 20 MEQ POWDER FOR ORAL SOLN PO (11:22)
[2018-09-26] MEDS: FUROSEMIDE 20 MG INJ IV ×2 (12:30→18:00)
[2018-09-26] MEDS: DIGOXIN 0.125 MG TAB GTB (12:49)
[2018-09-27] MEDS: PROPOFOL 100 ML IV ×2 (01:24→17:26)
[2018-09-27 05:32] LABS: ABNORMAL IP MESSAGE 1; HEMATOCRIT 25.9 % (42.0-52.0); HEMOGLOBIN 8.1 g/dl (14.0-18.0); MEAN CORPUSCULAR HEMOGLOBIN 30.7 pg (29.0-33.0); MEAN CORPUSCULAR HGB CONC 31.3 g/dl (32.0-37.0); MEAN CORPUSCULAR VOLUME 98.1 fl (82.0-101.0); MEAN PLATELET VOLUME 11.2 fl (7.4-10.4); PLATELET COUNT 299 10^3/UL (140-415); POSITIVE DIFF @See below; RED BLOOD COUNT 2.64 10^6/ul (4.70-6.10)
[2018-09-27 05:32] LABS: WHITE BLOOD COUNT 11.5 10^3/ul (4.8-10.8)
[2018-09-27 05:34] LABS: ANION GAP 1 (5-13); BLOOD UREA NITROGEN 19 mg/dl (7-20); CALCIUM 7.2 mg/dl (8.4-10.2); CARBON DIOXIDE 31 mmol/L (21-31); CHLORIDE 104 mmol/L (97-110); CREATININE 0.31 mg/dl (0.61-1.24); GLUCOSE 140 mg/dl (70-220); PHOSPHORUS 2.3 mg/dl (2.5-4.9); POTASSIUM 3.5 mmol/L (3.5-5.1); SODIUM 136 mmol/L (135-144)
[2018-09-27 05:44] LABS: ADD MAN DIFF? YES
[2018-09-27] MEDS: FUROSEMIDE 20 MG INJ IV ×2 (06:32→17:26)
[2018-09-27 07:13] LABS: BAND NEUTROPHILS % (M) 9 % (0-4); BASOPHIL #M 0.2 10^3/ul (0.0-0.0); BASOPHILS % (M) 2 % (0-2); EOSINOPHILS % (M) 3 % (0-7); GIANT THROMBO% (M) 2 % (0-0); HYPOCHROMASIA 2+ (0-0); LYMPHOCYTES #M 0.2 10^3/ul (0.8-2.9); LYMPHOCYTES % (M) 2 % (15-51); METAMYELOCYTES #M 0.4 10^3/ul (0.0-0.0); METAMYELOCYTES %M 4 % (0-0); MONOCYTE #M 0.6 10^3/ul (0.3-0.9); MONOCYTES % (M) 6 % (0-11); MYELOCYTES #M 1.1 10^3/ul (0.0-0.0); MYELOCYTES % (M) 10 % (0-0); PLATELET ESTIMATE NORMAL; PROMYELOCYTES #M 0.6 10^3/ul (0-0); PROMYELOCYTES % (M) 6 % (0-0); SEG NEUT #M 6.8 10^3/ul (1.6-7.5); SEGMENTED NEUTROPHILS (M) % 58 % (39-77); SMUDGE%M 1 % (0-0); SPHEROCYTES 1+ (0-0)
[2018-09-27] MEDS: ASCORBIC ACID 500 MG TAB GTB ×2 (08:38→21:35)
[2018-09-27] MEDS: ASPIRIN 81 MG TAB GTB (08:38)
[2018-09-27] MEDS: FAMOTIDINE 20 MG TAB GTB (08:38)
[2018-09-27] MEDS: AMIODARONE 200 MG TAB GTB ×2 (08:39→21:36)
[2018-09-27] MEDS: CARBIDOPA/LEVODOPA (25/100) TAB GTB ×3 (08:39→21:35)
[2018-09-27] MEDS: ZINC SULFATE 220 MG CAP GTB (08:39)
[2018-09-27] MEDS: CEFEPIME 2GM/50 ML (PMX) 50 ML IVPB ×2 (08:40→21:36)
[2018-09-27] MEDS: METOPROLOL 25 MG TAB PO ×2 (08:40→21:36)
[2018-09-27] MEDS: ENOXAPARIN 30 MG/0.3 ML SYG SC (08:42)
[2018-09-27] MEDS: BALSAM PERU/CASTOR OIL 60 GM TUBE TOP (08:49)
[2018-09-27] MEDS: DIGOXIN 0.125 MG TAB GTB (12:07)
[2018-09-27] MEDS: POTASSIUM CHLORIDE 20 MEQ POWDER FOR ORAL SOLN JT (15:25)
[2018-09-28] MEDS: FUROSEMIDE 20 MG INJ IV (06:49)
[2018-09-28] MEDS: FAMOTIDINE 20 MG TAB GTB (09:32)
[2018-09-28] MEDS: ASPIRIN 81 MG TAB GTB (09:32)
[2018-09-28] MEDS: ZINC SULFATE 220 MG CAP GTB (09:32)
[2018-09-28] MEDS: CARBIDOPA/LEVODOPA (25/100) TAB GTB ×3 (09:32→21:08)
[2018-09-28] MEDS: ASCORBIC ACID 500 MG TAB GTB ×2 (09:32→21:08)
[2018-09-28] MEDS: BALSAM PERU/CASTOR OIL 60 GM TUBE TOP (09:33)
[2018-09-28] MEDS: METOPROLOL 25 MG TAB PO ×2 (09:33→21:09)
[2018-09-28] MEDS: AMIODARONE 200 MG TAB GTB ×2 (09:33→21:08)
[2018-09-28] MEDS: ENOXAPARIN 30 MG/0.3 ML SYG SC (09:35)
[2018-09-28] MEDS: CEFEPIME 2GM/50 ML (PMX) 50 ML IVPB ×2 (10:14→21:10)
[2018-09-28 10:37] LABS: WHITE BLOOD COUNT 11.4 10^3/ul (4.8-10.8)
[2018-09-28 10:37] LABS: ABNORMAL IP MESSAGE 1; HEMATOCRIT 26.3 % (42.0-52.0); HEMOGLOBIN 8.6 g/dl (14.0-18.0); MEAN CORPUSCULAR HEMOGLOBIN 31.4 pg (29.0-33.0); MEAN CORPUSCULAR HGB CONC 32.7 g/dl (32.0-37.0); MEAN PLATELET VOLUME 11.1 fl (7.4-10.4); PLATELET COUNT 360 10^3/UL (140-415); POSITIVE DIFF @See below; RED BLOOD COUNT 2.74 10^6/ul (4.70-6.10); RED CELL DISTRIBUTION WIDTH 13.5 % (11.5-14.5)
[2018-09-28 10:42] LABS: ADD MAN DIFF? YES
[2018-09-28 10:54] LABS: ANION GAP 1 (5-13); BLOOD UREA NITROGEN 19 mg/dl (7-20); CALCIUM 7.6 mg/dl (8.4-10.2); CARBON DIOXIDE 38 mmol/L (21-31); CHLORIDE 96 mmol/L (97-110); CREATININE 0.37 mg/dl (0.61-1.24); GLUCOSE 136 mg/dl (70-220); MAGNESIUM 1.8 mg/dl (1.7-2.5); POTASSIUM 3.5 mmol/L (3.5-5.1); SODIUM 135 mmol/L (135-144)
[2018-09-28 11:23] LABS: BAND NEUTROPHILS #M 0.1 10^3/ul (0.0-0.6); BAND NEUTROPHILS % (M) 1 % (0-4); EOSINOPHILS % (M) 1 % (0-7); GIANT THROMBO% (M) 2 % (0-0); LYMPHOCYTES #M 0.4 10^3/ul (0.8-2.9); LYMPHOCYTES % (M) 4 % (15-51); METAMYELOCYTES #M 0.1 10^3/ul (0.0-0.0); METAMYELOCYTES %M 1 % (0-0); MONOCYTE #M 0.6 10^3/ul (0.3-0.9); MONOCYTES % (M) 6 % (0-11); MYELOCYTES #M 1.5 10^3/ul (0.0-0.0); MYELOCYTES % (M) 14 % (0-0); PLATELET ESTIMATE NORMAL; SEG NEUT #M 8.3 10^3/ul (1.6-7.5); SEGMENTED NEUTROPHILS (M) % 73 % (39-77); SMUDGE%M 18 % (0-0)
[2018-09-28] MEDS: PROPOFOL 100 ML IV (12:30)
[2018-09-28] MEDS: POTASSIUM CHLORIDE 20 MEQ POWDER FOR ORAL SOLN GTB ×2 (13:59→17:35)
[2018-09-28] MEDS: DIGOXIN 0.125 MG TAB GTB (14:00)
[2018-09-28] MEDS: MAGNESIUM SULFATE 3 GM in DEXTROSE 5% 100 ML IVPB (14:00)
[2018-09-28] MEDS: morphine LIQ (10 MG/5 ML) CUP GTB (22:21)
[2018-09-29] MEDS: PROPOFOL 100 ML IV ×2 (00:30→12:30)
[2018-09-29 04:42] LABS: ADD MAN DIFF? NO
[2018-09-29 04:44] LABS: ABNORMAL IP MESSAGE 1; BASOPHILS % 0.2 % (0.0-2.0); EOSINOPHILS # 0.4 10^3/ul (0.0-0.5); EOSINOPHILS % 3.7 % (0.0-7.0); HEMATOCRIT 23.7 % (42.0-52.0); HEMOGLOBIN 7.6 g/dl (14.0-18.0); LYMPHOCYTES % 9.8 % (15.0-51.0); MEAN CORPUSCULAR HEMOGLOBIN 30.8 pg (29.0-33.0); MEAN CORPUSCULAR HGB CONC 32.1 g/dl (32.0-37.0); MONOCYTES % 10.6 % (0.0-11.0); NEUTROPHIL # 5.9 10^3/ul (1.6-7.5); NEUTROPHILS % 61.1 % (39.0-77.0); PLATELET COUNT 342 10^3/UL (140-415); POSITIVE DIFF @See below; RED BLOOD COUNT 2.47 10^6/ul (4.70-6.10); RED CELL DISTRIBUTION WIDTH 13.3 % (11.5-14.5)
[2018-09-29 04:44] LABS: WHITE BLOOD COUNT 9.7 10^3/ul (4.8-10.8)
[2018-09-29 05:08] LABS: MAGNESIUM 2.5 mg/dl (1.7-2.5)
[2018-09-29 05:12] LABS: ANION GAP -1 (5-13); BLOOD UREA NITROGEN 21 mg/dl (7-20); CALCIUM 7.4 mg/dl (8.4-10.2); CARBON DIOXIDE 37 mmol/L (21-31); CHLORIDE 97 mmol/L (97-110); CREATININE 0.42 mg/dl (0.61-1.24); GLUCOSE 131 mg/dl (70-220); POTASSIUM 4.8 mmol/L (3.5-5.1); SODIUM 133 mmol/L (135-144)
[2018-09-29] MEDS: ZINC SULFATE 220 MG CAP GTB (09:30)
[2018-09-29] MEDS: CARBIDOPA/LEVODOPA (25/100) TAB GTB ×3 (09:31→21:12)
[2018-09-29] MEDS: ASCORBIC ACID 500 MG TAB GTB ×2 (09:31→21:13)
[2018-09-29] MEDS: FAMOTIDINE 20 MG TAB GTB (09:31)
[2018-09-29] MEDS: METOPROLOL 25 MG TAB PO ×2 (09:31→21:13)
[2018-09-29] MEDS: AMIODARONE 200 MG TAB GTB ×2 (09:31→21:13)
[2018-09-29] MEDS: ASPIRIN 81 MG TAB GTB (09:31)
[2018-09-29] MEDS: BALSAM PERU/CASTOR OIL 60 GM TUBE TOP (09:32)
[2018-09-29] MEDS: ENOXAPARIN 30 MG/0.3 ML SYG SC (09:33)
[2018-09-29] MEDS: CEFEPIME 2GM/50 ML (PMX) 50 ML IVPB ×2 (10:34→21:16)
[2018-09-29] MEDS: DIGOXIN 0.125 MG TAB GTB (12:47)
[2018-09-30] MEDS: PROPOFOL 100 ML IV ×2 (00:30→12:30)
[2018-09-30 04:57] LABS: ADD MAN DIFF? NO
[2018-09-30 05:01] LABS: ABNORMAL IP MESSAGE 1; BASOPHILS % 0.3 % (0.0-2.0); EOSINOPHILS # 0.4 10^3/ul (0.0-0.5); EOSINOPHILS % 3.4 % (0.0-7.0); HEMATOCRIT 25.1 % (42.0-52.0); HEMOGLOBIN 8.1 g/dl (14.0-18.0); LYMPHOCYTES % 9.3 % (15.0-51.0); MEAN CORPUSCULAR HEMOGLOBIN 30.9 pg (29.0-33.0); MEAN CORPUSCULAR HGB CONC 32.3 g/dl (32.0-37.0); MEAN CORPUSCULAR VOLUME 95.8 fl (82.0-101.0); MONOCYTES % 8.7 % (0.0-11.0); NEUTROPHIL # 7.5 10^3/ul (1.6-7.5); NEUTROPHILS % 67.9 % (39.0-77.0); PLATELET COUNT 384 10^3/UL (140-415); POSITIVE DIFF @See below; RED BLOOD COUNT 2.62 10^6/ul (4.70-6.10); RED CELL DISTRIBUTION WIDTH 13.2 % (11.5-14.5)
[2018-09-30 05:33] LABS: ANION GAP 2 (5-13); BLOOD UREA NITROGEN 19 mg/dl (7-20); CALCIUM 7.6 mg/dl (8.4-10.2); CARBON DIOXIDE 36 mmol/L (21-31); CHLORIDE 97 mmol/L (97-110); CREATININE 0.41 mg/dl (0.61-1.24); GLUCOSE 133 mg/dl (70-220); POTASSIUM 4.8 mmol/L (3.5-5.1); SODIUM 135 mmol/L (135-144)
[2018-09-30] MEDS: ASPIRIN 81 MG TAB GTB (08:26)
[2018-09-30] MEDS: ASCORBIC ACID 500 MG TAB GTB ×2 (08:26→21:27)
[2018-09-30] MEDS: FAMOTIDINE 20 MG TAB GTB (08:26)
[2018-09-30] MEDS: ZINC SULFATE 220 MG CAP GTB (08:26)
[2018-09-30] MEDS: AMIODARONE 200 MG TAB GTB ×3 (08:26→21:27)
[2018-09-30] MEDS: CARBIDOPA/LEVODOPA (25/100) TAB GTB ×3 (08:26→21:27)
[2018-09-30] MEDS: METOPROLOL 25 MG TAB PO ×3 (08:26→21:27)
[2018-09-30] MEDS: ENOXAPARIN 30 MG/0.3 ML SYG SC (08:27)
[2018-09-30 08:28] LABS: BAND NEUTROPHILS #M 0.2 10^3/ul (0.0-0.6); BAND NEUTROPHILS % (M) 2 % (0-4); BASOPHIL #M 0.1 10^3/ul (0.0-0.0); BASOPHILS % (M) 1 % (0-2); EOSINOPHILS % (M) 3 % (0-7); LYMPHOCYTES #M 0.6 10^3/ul (0.8-2.9); LYMPHOCYTES % (M) 6 % (15-51); MONOCYTE #M 1.1 10^3/ul (0.3-0.9); MONOCYTES % (M) 10 % (0-11); MYELOCYTES #M 0.3 10^3/ul (0.0-0.0); MYELOCYTES % (M) 3 % (0-0); PLATELET ESTIMATE NORMAL; POLYCHROMASIA 1+ (0-0); SEG NEUT #M 8.3 10^3/ul (1.6-7.5); SEGMENTED NEUTROPHILS (M) % 75 % (39-77); SMUDGE%M 23 % (0-0)
[2018-09-30] MEDS: BALSAM PERU/CASTOR OIL 60 GM TUBE TOP (08:28)
[2018-09-30] MEDS: CEFEPIME 2GM/50 ML (PMX) 50 ML IVPB ×2 (08:34→21:27)
[2018-09-30 10:39] LABS: AADO2 Arterial 51.2 mmHg (7.0-24.0); Allen Test ACCEPTAB; Arterial Base Excess 9.8 mmol/L (-3.0-3); Arterial Blood Gas Oxygen Sat 97.6 mmHG (95.0-100.0); Arterial COHb 0.1 % (0.0-3.0); Arterial Fraction of Oxyhgb 97.2 % (93.0-99.0); Arterial HCO3 34.5 mmol/L (22.0-26.0); Arterial MetHb 0.3 % (0.0-1.5); Arterial pCO2 48.1 mmhg (35-45); Blood Gas PS 10; MODE VENT - CPAP; Site Right Radial
[2018-09-30] MEDS: DIGOXIN 0.125 MG TAB GTB (13:59)
[2018-10-01] MEDS: PROPOFOL 100 ML IV ×2 (00:30→12:30)
[2018-10-01 04:51] LABS: ADD MAN DIFF? NO
[2018-10-01 04:55] LABS: ABNORMAL IP MESSAGE 1; BASOPHILS % 0.4 % (0.0-2.0); EOSINOPHILS # 0.3 10^3/ul (0.0-0.5); EOSINOPHILS % 2.8 % (0.0-7.0); HEMATOCRIT 26.4 % (42.0-52.0); HEMOGLOBIN 8.5 g/dl (14.0-18.0); LYMPHOCYTES % 10.3 % (15.0-51.0); MEAN CORPUSCULAR HEMOGLOBIN 30.7 pg (29.0-33.0); MEAN CORPUSCULAR HGB CONC 32.2 g/dl (32.0-37.0); MEAN CORPUSCULAR VOLUME 95.3 fl (82.0-101.0); MONOCYTE # 0.9 10^3/ul (0.3-0.9); MONOCYTES % 9.2 % (0.0-11.0); NEUTROPHILS % 72.1 % (39.0-77.0); PLATELET COUNT 411 10^3/UL (140-415); POSITIVE DIFF @See below; RED BLOOD COUNT 2.77 10^6/ul (4.70-6.10); RED CELL DISTRIBUTION WIDTH 12.8 % (11.5-14.5)
[2018-10-01 04:55] LABS: WHITE BLOOD COUNT 9.7 10^3/ul (4.8-10.8)
[2018-10-01 05:10] LABS: AADO2 Arterial 61.5 mmHg (7.0-24.0); Allen Test ACCEPTAB; Arterial Base Excess 8.8 mmol/L (-3.0-3); Arterial Blood Gas Oxygen Sat 95.9 mmHG (95.0-100.0); Arterial COHb 0.9 % (0.0-3.0); Arterial Fraction of Oxyhgb 94.8 % (93.0-99.0); Arterial HCO3 33.6 mmol/L (22.0-26.0); Arterial MetHb 0.2 % (0.0-1.5); Arterial pCO2 47.5 mmhg (35-45); MODE NASAL CANNULA; Site Right Radial
[2018-10-01 07:53] LABS: ANION GAP 3 (5-13); BLOOD UREA NITROGEN 17 mg/dl (7-20); CALCIUM 8.1 mg/dl (8.4-10.2); CARBON DIOXIDE 32 mmol/L (21-31); CHLORIDE 97 mmol/L (97-110); GLUCOSE 92 mg/dl (70-220); POTASSIUM 4.8 mmol/L (3.5-5.1); SODIUM 132 mmol/L (135-144)
[2018-10-01] MEDS: METOPROLOL 25 MG TAB PO ×2 (09:00→20:41)
[2018-10-01] MEDS: ASCORBIC ACID 500 MG TAB GTB ×2 (09:11→20:40)
[2018-10-01] MEDS: FAMOTIDINE 20 MG TAB GTB (09:11)
[2018-10-01] MEDS: AMIODARONE 200 MG TAB GTB (09:11)
[2018-10-01] MEDS: ZINC SULFATE 220 MG CAP GTB (09:11)
[2018-10-01] MEDS: CARBIDOPA/LEVODOPA (25/100) TAB GTB ×3 (09:11→20:40)
[2018-10-01] MEDS: ASPIRIN 81 MG TAB GTB (09:11)
[2018-10-01] MEDS: BALSAM PERU/CASTOR OIL 60 GM TUBE TOP (09:11)
[2018-10-01] MEDS: ENOXAPARIN 30 MG/0.3 ML SYG SC (09:13)
[2018-10-01] MEDS: CEFEPIME 2GM/50 ML (PMX) 50 ML IVPB ×2 (10:19→21:39)
[2018-10-01] MEDS: DIGOXIN 0.125 MG TAB GTB (13:00)
[2018-10-01] MEDS: ALBUTEROL/IPRATROPIUM (NEB) 3 ML AMP HHN ×2 (16:00→20:17)
[2018-10-02] MEDS: ALBUTEROL/IPRATROPIUM (NEB) 3 ML AMP HHN ×4 (01:37→20:43)
[2018-10-02 05:53] LABS: ADD MAN DIFF? NO
[2018-10-02 06:01] LABS: BASOPHILS % 0.3 % (0.0-2.0); EOSINOPHILS # 0.3 10^3/ul (0.0-0.5); EOSINOPHILS % 2.6 % (0.0-7.0); HEMATOCRIT 25.2 % (42.0-52.0); HEMOGLOBIN 8.3 g/dl (14.0-18.0); LYMPHOCYTES # 0.7 10^3/ul (0.8-2.9); LYMPHOCYTES % 7.7 % (15.0-51.0); MEAN CORPUSCULAR HEMOGLOBIN 31.2 pg (29.0-33.0); MEAN CORPUSCULAR HGB CONC 32.9 g/dl (32.0-37.0); MEAN CORPUSCULAR VOLUME 94.7 fl (82.0-101.0); MEAN PLATELET VOLUME 11.1 fl (7.4-10.4); MONOCYTE # 0.9 10^3/ul (0.3-0.9); MONOCYTES % 9.7 % (0.0-11.0); NEUTROPHIL # 7.4 10^3/ul (1.6-7.5); NEUTROPHILS % 76.6 % (39.0-77.0); PLATELET COUNT 414 10^3/UL (140-415); RED BLOOD COUNT 2.66 10^6/ul (4.70-6.10)
[2018-10-02 06:01] LABS: WHITE BLOOD COUNT 9.6 10^3/ul (4.8-10.8)
[2018-10-02 06:15] LABS: ANION GAP 4 (5-13); BLOOD UREA NITROGEN 20 mg/dl (7-20); CALCIUM 7.9 mg/dl (8.4-10.2); CARBON DIOXIDE 36 mmol/L (21-31); CHLORIDE 96 mmol/L (97-110); CREATININE 0.45 mg/dl (0.61-1.24); GLUCOSE 119 mg/dl (70-220); POTASSIUM 4.4 mmol/L (3.5-5.1); SODIUM 136 mmol/L (135-144)
[2018-10-02] MEDS: ASCORBIC ACID 500 MG TAB GTB ×2 (08:19→21:25)
[2018-10-02] MEDS: ZINC SULFATE 220 MG CAP GTB (08:19)
[2018-10-02] MEDS: ASPIRIN 81 MG TAB GTB (08:20)
[2018-10-02] MEDS: METOPROLOL 25 MG TAB PO ×2 (08:20→21:25)
[2018-10-02] MEDS: AMIODARONE 200 MG TAB GTB (08:20)
[2018-10-02] MEDS: FAMOTIDINE 20 MG TAB GTB (08:20)
[2018-10-02] MEDS: ENOXAPARIN 30 MG/0.3 ML SYG SC (08:26)
[2018-10-02] MEDS: CARBIDOPA/LEVODOPA (25/100) TAB GTB ×3 (09:28→21:25)
[2018-10-02] MEDS: BALSAM PERU/CASTOR OIL 60 GM TUBE TOP (09:31)
[2018-10-02] MEDS: CEFEPIME 2GM/50 ML (PMX) 50 ML IVPB ×2 (09:31→21:26)
[2018-10-03] MEDS: ALBUTEROL/IPRATROPIUM (NEB) 3 ML AMP HHN ×4 (01:37→20:47)
[2018-10-03] MEDS: morphine LIQ (10 MG/5 ML) CUP GTB (05:29)
[2018-10-03] MEDS: CEFEPIME 2GM/50 ML (PMX) 50 ML IVPB ×2 (09:22→21:34)
[2018-10-03] MEDS: ASPIRIN 81 MG TAB GTB (09:23)
[2018-10-03] MEDS: METOPROLOL 25 MG TAB PO ×2 (09:23→20:30)
[2018-10-03] MEDS: ASCORBIC ACID 500 MG TAB GTB ×2 (09:23→20:30)
[2018-10-03] MEDS: ZINC SULFATE 220 MG CAP GTB (09:23)
[2018-10-03] MEDS: AMIODARONE 200 MG TAB GTB (09:23)
[2018-10-03] MEDS: CARBIDOPA/LEVODOPA (25/100) TAB GTB ×3 (09:23→20:29)
[2018-10-03] MEDS: FAMOTIDINE 20 MG TAB GTB (09:23)
[2018-10-03] MEDS: BALSAM PERU/CASTOR OIL 60 GM TUBE TOP (09:24)
[2018-10-03] MEDS: ENOXAPARIN 30 MG/0.3 ML SYG SC (09:52)
[2018-10-03] MEDS: FUROSEMIDE 20 MG TAB NGT (13:28)
[2018-10-04] MEDS: ALBUTEROL/IPRATROPIUM (NEB) 3 ML AMP HHN ×4 (01:44→20:16)
[2018-10-04 04:57] LABS: ADD MAN DIFF? NO
[2018-10-04 05:07] LABS: WHITE BLOOD COUNT 10.6 10^3/ul (4.8-10.8)
[2018-10-04 05:07] LABS: BASOPHILS % 0.3 % (0.0-2.0); EOSINOPHILS # 0.3 10^3/ul (0.0-0.5); EOSINOPHILS % 2.4 % (0.0-7.0); HEMATOCRIT 29.7 % (42.0-52.0); HEMOGLOBIN 9.5 g/dl (14.0-18.0); LYMPHOCYTES # 0.9 10^3/ul (0.8-2.9); LYMPHOCYTES % 8.9 % (15.0-51.0); MEAN CORPUSCULAR VOLUME 97.1 fl (82.0-101.0); MEAN PLATELET VOLUME 10.9 fl (7.4-10.4); MONOCYTES % 9.3 % (0.0-11.0); NEUTROPHIL # 8.2 10^3/ul (1.6-7.5); NEUTROPHILS % 77.6 % (39.0-77.0); PLATELET COUNT 434 10^3/UL (140-415); RED BLOOD COUNT 3.06 10^6/ul (4.70-6.10)
[2018-10-04 05:36] LABS: ANION GAP 3 (5-13); BLOOD UREA NITROGEN 24 mg/dl (7-20); CALCIUM 8.3 mg/dl (8.4-10.2); CARBON DIOXIDE 35 mmol/L (21-31); CHLORIDE 96 mmol/L (97-110); CREATININE 0.49 mg/dl (0.61-1.24); GLUCOSE 142 mg/dl (70-220); POTASSIUM 5.2 mmol/L (3.5-5.1); SODIUM 134 mmol/L (135-144)
[2018-10-04] MEDS: ZINC SULFATE 220 MG CAP GTB (08:44)
[2018-10-04] MEDS: FAMOTIDINE 20 MG TAB GTB (08:45)
[2018-10-04] MEDS: AMIODARONE 200 MG TAB GTB (08:45)
[2018-10-04] MEDS: FUROSEMIDE 20 MG TAB NGT (08:45)
[2018-10-04] MEDS: METOPROLOL 25 MG TAB PO ×2 (08:45→20:08)
[2018-10-04] MEDS: CARBIDOPA/LEVODOPA (25/100) TAB GTB ×3 (08:45→20:08)
[2018-10-04] MEDS: ASPIRIN 81 MG TAB GTB (08:46)
[2018-10-04] MEDS: BALSAM PERU/CASTOR OIL 60 GM TUBE TOP (08:46)
[2018-10-04] MEDS: ASCORBIC ACID 500 MG TAB GTB ×2 (08:46→20:08)
[2018-10-04] MEDS: ENOXAPARIN 30 MG/0.3 ML SYG SC (09:09)
[2018-10-04] MEDS: CEFEPIME 2GM/50 ML (PMX) 50 ML IVPB ×2 (09:38→20:08)
[2018-10-05] MEDS: ALBUTEROL/IPRATROPIUM (NEB) 3 ML AMP HHN ×4 (01:53→19:58)
[2018-10-05 06:08] LABS: ANION GAP 7 (5-13); BLOOD UREA NITROGEN 36 mg/dl (7-20); CALCIUM 8.3 mg/dl (8.4-10.2); CARBON DIOXIDE 35 mmol/L (21-31); CHLORIDE 95 mmol/L (97-110); CREATININE 0.58 mg/dl (0.61-1.24); GLUCOSE 144 mg/dl (70-220); POTASSIUM 4.6 mmol/L (3.5-5.1); SODIUM 137 mmol/L (135-144)
[2018-10-05] MEDS: ASPIRIN 81 MG TAB GTB (09:42)
[2018-10-05] MEDS: AMIODARONE 200 MG TAB GTB (09:43)
[2018-10-05] MEDS: ASCORBIC ACID 500 MG TAB GTB ×2 (09:44→21:07)
[2018-10-05] MEDS: METOPROLOL 25 MG TAB PO ×2 (09:44→21:08)
[2018-10-05] MEDS: CARBIDOPA/LEVODOPA (25/100) TAB GTB ×3 (09:44→21:08)
[2018-10-05] MEDS: BALSAM PERU/CASTOR OIL 60 GM TUBE TOP (09:44)
[2018-10-05] MEDS: FUROSEMIDE 20 MG TAB NGT (09:44)
[2018-10-05] MEDS: ZINC SULFATE 220 MG CAP GTB (09:44)
[2018-10-05] MEDS: FAMOTIDINE 20 MG TAB GTB (09:44)
[2018-10-05] MEDS: CEFEPIME 2GM/50 ML (PMX) 50 ML IVPB (09:48)
[2018-10-05] MEDS: ENOXAPARIN 30 MG/0.3 ML SYG SC (09:58)
[2018-10-05 11:46] LABS: AADO2 Arterial 588.8 mmHg (7.0-24.0); Allen Test ACCEPTAB; Arterial Base Excess 6.9 mmol/L (-3.0-3); Arterial Blood Gas Oxygen Sat 95.9 mmHG (95.0-100.0); Arterial COHb 0.3 % (0.0-3.0); Arterial Fraction of Oxyhgb 95.3 % (93.0-99.0); Arterial HCO3 30.9 mmol/L (22.0-26.0); Arterial MetHb 0.3 % (0.0-1.5); Arterial pCO2 41.9 mmhg (35-45); MODE MASK - NRB; Site Right Radial
[2018-10-05] MEDS ORDERED: VANCOMYCIN IV PER PHARMACY XX (12:30)
[2018-10-05] MEDS: ACETYLCYSTEINE 20% 4 ML VIAL NEB ×2 (13:01→19:58)
[2018-10-05] MEDS: MEROPENEM 1 GM/50ML(PMX) 50 ML IVPB ×2 (13:14→21:08)
[2018-10-05] MEDS: VANCOMYCIN 1 GM 250 ML IVPB (14:14)
[2018-10-05] MEDS: ALBUTEROL 0.083% (NEB) 2.5 MG/3 ML AMP NEB (17:07)
[2018-10-05] MEDS: ACETAMINOPHEN 650 MG SUPP PR (21:29)
[2018-10-06] MEDS: ALBUTEROL/IPRATROPIUM (NEB) 3 ML AMP HHN ×4 (01:19→19:28)
[2018-10-06] MEDS: ACETYLCYSTEINE 20% 4 ML VIAL NEB ×4 (01:19→19:28)
[2018-10-06] MEDS: VANCOMYCIN 750 MG (PMX) 250 ML IVPB ×2 (02:13→12:31)
[2018-10-06 05:01] LABS: ADD MAN DIFF? NO
[2018-10-06 05:07] LABS: WHITE BLOOD COUNT 16.4 10^3/ul (4.8-10.8)
[2018-10-06 05:07] LABS: BASOPHILS % 0.2 % (0.0-2.0); EOSINOPHILS % 0.1 % (0.0-7.0); HEMATOCRIT 24.4 % (42.0-52.0); HEMOGLOBIN 7.9 g/dl (14.0-18.0); LYMPHOCYTES # 0.6 10^3/ul (0.8-2.9); LYMPHOCYTES % 3.9 % (15.0-51.0); MEAN CORPUSCULAR HEMOGLOBIN 31.2 pg (29.0-33.0); MEAN CORPUSCULAR HGB CONC 32.4 g/dl (32.0-37.0); MEAN CORPUSCULAR VOLUME 96.4 fl (82.0-101.0); MONOCYTE # 1.3 10^3/ul (0.3-0.9); MONOCYTES % 8.2 % (0.0-11.0); NEUTROPHIL # 14.2 10^3/ul (1.6-7.5); NEUTROPHILS % 86.4 % (39.0-77.0); PLATELET COUNT 389 10^3/UL (140-415); RED BLOOD COUNT 2.53 10^6/ul (4.70-6.10); RED CELL DISTRIBUTION WIDTH 13.5 % (11.5-14.5)
[2018-10-06 05:55] LABS: ANION GAP 8 (5-13); BLOOD UREA NITROGEN 43 mg/dl (7-20); CALCIUM 8.1 mg/dl (8.4-10.2); CARBON DIOXIDE 33 mmol/L (21-31); CHLORIDE 97 mmol/L (97-110); CREATININE 0.43 mg/dl (0.61-1.24); GLUCOSE 152 mg/dl (70-220); POTASSIUM 4.3 mmol/L (3.5-5.1); SODIUM 138 mmol/L (135-144)
[2018-10-06] MEDS: ZINC SULFATE 220 MG CAP GTB (08:19)
[2018-10-06] MEDS: FUROSEMIDE 20 MG TAB NGT (08:19)
[2018-10-06] MEDS: ASPIRIN 81 MG TAB GTB (08:19)
[2018-10-06] MEDS: AMIODARONE 200 MG TAB GTB (08:19)
[2018-10-06] MEDS: ASCORBIC ACID 500 MG TAB GTB ×2 (08:19→20:51)
[2018-10-06] MEDS: FAMOTIDINE 20 MG TAB GTB (08:20)
[2018-10-06] MEDS: METOPROLOL 25 MG TAB PO ×2 (08:20→20:52)
[2018-10-06] MEDS: BALSAM PERU/CASTOR OIL 60 GM TUBE TOP (08:21)
[2018-10-06] MEDS: CARBIDOPA/LEVODOPA (25/100) TAB GTB ×3 (08:31→20:51)
[2018-10-06] MEDS: ENOXAPARIN 30 MG/0.3 ML SYG SC (08:45)
[2018-10-06] MEDS: MEROPENEM 1 GM/50ML(PMX) 50 ML IVPB ×2 (08:47→20:46)
[2018-10-06] MEDS: ACETAMINOPHEN 650 MG SUPP PR (16:00)
[2018-10-06] MEDS: DOCUSATE SODIUM 10 MG/ML (10ML CUP) GTB (16:00)
[2018-10-07] MEDS: ALBUTEROL/IPRATROPIUM (NEB) 3 ML AMP HHN ×4 (01:42→19:25)
[2018-10-07] MEDS: ACETYLCYSTEINE 20% 4 ML VIAL NEB ×4 (01:42→19:25)
[2018-10-07] MEDS: VANCOMYCIN 750 MG (PMX) 250 ML IVPB ×2 (01:46→12:13)
[2018-10-07 04:59] LABS: AADO2 Arterial 112.4 mmHg (7.0-24.0); Allen Test ACCEPTAB; Arterial Base Excess 8.6 mmol/L (-3.0-3); Arterial Blood Gas Oxygen Sat 90.6 mmHG (95.0-100.0); Arterial COHb 0.8 % (0.0-3.0); Arterial Fraction of Oxyhgb 89.6 % (93.0-99.0); Arterial HCO3 31.9 mmol/L (22.0-26.0); Arterial MetHb 0.3 % (0.0-1.5); Arterial pCO2 39.2 mmhg (35-45); MODE NASAL CANNULA; Site Right Radial
[2018-10-07 05:05] LABS: ADD MAN DIFF? NO
[2018-10-07 05:17] LABS: BASOPHILS % 0.3 % (0.0-2.0); EOSINOPHILS # 0.1 10^3/ul (0.0-0.5); EOSINOPHILS % 0.7 % (0.0-7.0); HEMATOCRIT 24.3 % (42.0-52.0); HEMOGLOBIN 7.6 g/dl (14.0-18.0); LYMPHOCYTES # 0.9 10^3/ul (0.8-2.9); LYMPHOCYTES % 8.3 % (15.0-51.0); MEAN CORPUSCULAR HEMOGLOBIN 30.4 pg (29.0-33.0); MEAN CORPUSCULAR HGB CONC 31.3 g/dl (32.0-37.0); MEAN CORPUSCULAR VOLUME 97.2 fl (82.0-101.0); MEAN PLATELET VOLUME 11.2 fl (7.4-10.4); MONOCYTE # 1.1 10^3/ul (0.3-0.9); MONOCYTES % 10.5 % (0.0-11.0); NEUTROPHIL # 8.3 10^3/ul (1.6-7.5); NEUTROPHILS % 79.4 % (39.0-77.0); PLATELET COUNT 369 10^3/UL (140-415); RED CELL DISTRIBUTION WIDTH 13.4 % (11.5-14.5)
[2018-10-07 05:17] LABS: WHITE BLOOD COUNT 10.4 10^3/ul (4.8-10.8)
[2018-10-07 05:37] LABS: ANION GAP 3 (5-13); BLOOD UREA NITROGEN 39 mg/dl (7-20); CARBON DIOXIDE 35 mmol/L (21-31); CHLORIDE 101 mmol/L (97-110); CREATININE 0.43 mg/dl (0.61-1.24); GLUCOSE 125 mg/dl (70-220); POTASSIUM 4.1 mmol/L (3.5-5.1); SODIUM 139 mmol/L (135-144)
[2018-10-07] MEDS: DOCUSATE SODIUM 10 MG/ML (10ML CUP) GTB (07:03)
[2018-10-07] MEDS: FUROSEMIDE 20 MG TAB NGT (09:01)
[2018-10-07] MEDS: AMIODARONE 200 MG TAB GTB (09:02)
[2018-10-07] MEDS: ZINC SULFATE 220 MG CAP GTB (09:07)
[2018-10-07] MEDS: METOPROLOL 25 MG TAB PO ×2 (09:07→20:22)
[2018-10-07] MEDS: ASCORBIC ACID 500 MG TAB GTB ×2 (09:07→20:22)
[2018-10-07] MEDS: FAMOTIDINE 20 MG TAB GTB (09:07)
[2018-10-07] MEDS: CARBIDOPA/LEVODOPA (25/100) TAB GTB ×3 (09:07→20:22)
[2018-10-07] MEDS: MEROPENEM 1 GM/50ML(PMX) 50 ML IVPB ×2 (09:08→20:21)
[2018-10-07] MEDS: BALSAM PERU/CASTOR OIL 60 GM TUBE TOP (09:08)
[2018-10-07] MEDS: ENOXAPARIN 30 MG/0.3 ML SYG SC (09:31)
[2018-10-07] MEDS: EPOETIN 10000 UNITS/ML (NON ESRD/NON ONCOLOGY) SC (10:27)
[2018-10-07 12:43] LABS: VANCOMYCIN,TROUGH 11.7 ug/ml (10.0-20.0)
[2018-10-07] MEDS: VANCOMYCIN 1 GM 250 ML IVPB (20:42)
[2018-10-08] MEDS: ACETYLCYSTEINE 20% 4 ML VIAL NEB ×4 (01:55→19:45)
[2018-10-08] MEDS: ALBUTEROL/IPRATROPIUM (NEB) 3 ML AMP HHN ×4 (01:55→19:44)
[2018-10-08 06:44] LABS: ADD MAN DIFF? NO
[2018-10-08 06:49] LABS: WHITE BLOOD COUNT 6.1 10^3/ul (4.8-10.8)
[2018-10-08 06:49] LABS: BASOPHILS % 0.3 % (0.0-2.0); EOSINOPHILS # 0.2 10^3/ul (0.0-0.5); HEMATOCRIT 25.3 % (42.0-52.0); HEMOGLOBIN 7.8 g/dl (14.0-18.0); LYMPHOCYTES # 0.9 10^3/ul (0.8-2.9); LYMPHOCYTES % 15.4 % (15.0-51.0); MEAN CORPUSCULAR HEMOGLOBIN 30.1 pg (29.0-33.0); MEAN CORPUSCULAR HGB CONC 30.8 g/dl (32.0-37.0); MEAN CORPUSCULAR VOLUME 97.7 fl (82.0-101.0); MEAN PLATELET VOLUME 11.1 fl (7.4-10.4); MONOCYTE # 0.8 10^3/ul (0.3-0.9); MONOCYTES % 13.9 % (0.0-11.0); NEUTROPHIL # 4.1 10^3/ul (1.6-7.5); NEUTROPHILS % 66.9 % (39.0-77.0); PLATELET COUNT 334 10^3/UL (140-415); RED BLOOD COUNT 2.59 10^6/ul (4.70-6.10); RED CELL DISTRIBUTION WIDTH 13.5 % (11.5-14.5)
[2018-10-08 07:12] LABS: ANION GAP 3 (5-13); BLOOD UREA NITROGEN 38 mg/dl (7-20); CARBON DIOXIDE 33 mmol/L (21-31); CHLORIDE 102 mmol/L (97-110); CREATININE 0.44 mg/dl (0.61-1.24); GLUCOSE 118 mg/dl (70-220); POTASSIUM 3.8 mmol/L (3.5-5.1); SODIUM 138 mmol/L (135-144)
[2018-10-08] MEDS: VANCOMYCIN 1 GM 250 ML IVPB ×2 (09:00→20:44)
[2018-10-08] MEDS: FUROSEMIDE 20 MG TAB NGT (09:01)
[2018-10-08] MEDS: MEROPENEM 1 GM/50ML(PMX) 50 ML IVPB ×2 (09:01→20:44)
[2018-10-08] MEDS: CARBIDOPA/LEVODOPA (25/100) TAB GTB ×3 (09:01→20:44)
[2018-10-08] MEDS: ASCORBIC ACID 500 MG TAB GTB ×2 (09:01→20:43)
[2018-10-08] MEDS: FAMOTIDINE 20 MG TAB GTB (09:01)
[2018-10-08] MEDS: BALSAM PERU/CASTOR OIL 60 GM TUBE TOP (09:02)
[2018-10-08] MEDS: AMIODARONE 200 MG TAB GTB (09:02)
[2018-10-08] MEDS: ZINC SULFATE 220 MG CAP GTB (09:02)
[2018-10-08] MEDS: METOPROLOL 25 MG TAB PO ×2 (09:02→20:43)
[2018-10-08] MEDS: ENOXAPARIN 30 MG/0.3 ML SYG SC (09:14)
[2018-10-08 09:37] LABS: OCCULT BLOOD STOOL NEGATIVE (NEGATIVE)
[2018-10-08 13:08] LABS: OCCULT BLOOD STOOL NEGATIVE (NEGATIVE)
[2018-10-08] MEDS: FLUCONAZOLE 100 MG TAB PO (16:26)
[2018-10-09] MEDS: ACETYLCYSTEINE 20% 4 ML VIAL NEB ×4 (01:40→20:08)
[2018-10-09] MEDS: ALBUTEROL/IPRATROPIUM (NEB) 3 ML AMP HHN ×4 (01:40→20:08)
[2018-10-09 08:13] LABS: VANCOMYCIN,TROUGH 18.3 ug/ml (10.0-20.0)
[2018-10-09] MEDS: FAMOTIDINE 20 MG TAB GTB (09:02)
[2018-10-09] MEDS: CARBIDOPA/LEVODOPA (25/100) TAB GTB ×3 (09:02→21:33)
[2018-10-09] MEDS: FLUCONAZOLE 100 MG TAB PO (09:07)
[2018-10-09] MEDS: FUROSEMIDE 20 MG TAB NGT (09:08)
[2018-10-09] MEDS: ASCORBIC ACID 500 MG TAB GTB ×2 (09:08→21:32)
[2018-10-09] MEDS: AMIODARONE 200 MG TAB GTB (09:08)
[2018-10-09] MEDS: ZINC SULFATE 220 MG CAP GTB (09:08)
[2018-10-09] MEDS: MEROPENEM 1 GM/50ML(PMX) 50 ML IVPB ×2 (09:08→21:33)
[2018-10-09] MEDS: METOPROLOL 25 MG TAB PO ×2 (09:09→21:33)
[2018-10-09] MEDS: BALSAM PERU/CASTOR OIL 60 GM TUBE TOP (09:09)
[2018-10-09] MEDS: ENOXAPARIN 30 MG/0.3 ML SYG SC (09:48)
[2018-10-09] MEDS: VANCOMYCIN 750 MG (PMX) 250 ML IVPB ×2 (10:13→21:33)
[2018-10-09] MEDS: POTASSIUM CHLORIDE 20 MEQ POWDER FOR ORAL SOLN JT (14:00)
[2018-10-10] MEDS: ACETYLCYSTEINE 20% 4 ML VIAL NEB ×4 (01:01→19:58)
[2018-10-10] MEDS: ALBUTEROL/IPRATROPIUM (NEB) 3 ML AMP HHN ×4 (01:01→19:57)
[2018-10-10 08:38] LABS: ADD MAN DIFF? NO
[2018-10-10 08:48] LABS: WHITE BLOOD COUNT 5.7 10^3/ul (4.8-10.8)
[2018-10-10 08:48] LABS: BASOPHILS % 0.5 % (0.0-2.0); EOSINOPHILS # 0.3 10^3/ul (0.0-0.5); EOSINOPHILS % 4.9 % (0.0-7.0); HEMATOCRIT 25.7 % (42.0-52.0); HEMOGLOBIN 8.2 g/dl (14.0-18.0); LYMPHOCYTES # 0.9 10^3/ul (0.8-2.9); LYMPHOCYTES % 16.1 % (15.0-51.0); MEAN CORPUSCULAR HEMOGLOBIN 30.5 pg (29.0-33.0); MEAN CORPUSCULAR HGB CONC 31.9 g/dl (32.0-37.0); MEAN CORPUSCULAR VOLUME 95.5 fl (82.0-101.0); MEAN PLATELET VOLUME 11.1 fl (7.4-10.4); MONOCYTE # 0.7 10^3/ul (0.3-0.9); MONOCYTES % 11.9 % (0.0-11.0); NEUTROPHIL # 3.8 10^3/ul (1.6-7.5); NEUTROPHILS % 65.6 % (39.0-77.0); PLATELET COUNT 375 10^3/UL (140-415); RED BLOOD COUNT 2.69 10^6/ul (4.70-6.10); RED CELL DISTRIBUTION WIDTH 13.2 % (11.5-14.5)
[2018-10-10 09:08] LABS: ANION GAP 2 (5-13); BLOOD UREA NITROGEN 25 mg/dl (7-20); CALCIUM 8.1 mg/dl (8.4-10.2); CARBON DIOXIDE 34 mmol/L (21-31); CHLORIDE 99 mmol/L (97-110); GLUCOSE 153 mg/dl (70-220); POTASSIUM 4.2 mmol/L (3.5-5.1); SODIUM 135 mmol/L (135-144)
[2018-10-10 09:11] LABS: MAGNESIUM 2.1 mg/dl (1.7-2.5)
[2018-10-10] MEDS: CARBIDOPA/LEVODOPA (25/100) TAB GTB ×3 (09:23→20:57)
[2018-10-10] MEDS: METOPROLOL 25 MG TAB PO ×2 (09:23→20:57)
[2018-10-10] MEDS: MEROPENEM 1 GM/50ML(PMX) 50 ML IVPB (09:24)
[2018-10-10] MEDS: AMIODARONE 200 MG TAB GTB (09:24)
[2018-10-10] MEDS: ZINC SULFATE 220 MG CAP GTB (09:24)
[2018-10-10] MEDS: FLUCONAZOLE 100 MG TAB PO (09:24)
[2018-10-10] MEDS: ASCORBIC ACID 500 MG TAB GTB ×2 (09:24→20:57)
[2018-10-10] MEDS: FUROSEMIDE 20 MG TAB NGT (09:24)
[2018-10-10] MEDS: FAMOTIDINE 20 MG TAB GTB (09:24)
[2018-10-10] MEDS: BALSAM PERU/CASTOR OIL 60 GM TUBE TOP (09:31)
[2018-10-10] MEDS: ENOXAPARIN 30 MG/0.3 ML SYG SC (09:31)
[2018-10-10] MEDS: VANCOMYCIN 750 MG (PMX) 250 ML IVPB (12:40)
[2018-10-11] MEDS: ALBUTEROL/IPRATROPIUM (NEB) 3 ML AMP HHN ×4 (01:31→19:30)
[2018-10-11] MEDS: ACETYLCYSTEINE 20% 4 ML VIAL NEB ×4 (01:31→19:30)
[2018-10-11] MEDS: BALSAM PERU/CASTOR OIL 60 GM TUBE TOP (09:00)
[2018-10-11] MEDS: ASCORBIC ACID 500 MG TAB GTB ×2 (09:07→21:23)
[2018-10-11] MEDS: METOPROLOL 25 MG TAB PO ×2 (09:07→21:00)
[2018-10-11] MEDS: AMIODARONE 200 MG TAB GTB (09:07)
[2018-10-11] MEDS: FAMOTIDINE 20 MG TAB GTB (09:07)
[2018-10-11] MEDS: ZINC SULFATE 220 MG CAP GTB (09:08)
[2018-10-11] MEDS: CARBIDOPA/LEVODOPA (25/100) TAB GTB ×3 (09:08→21:24)
[2018-10-11] MEDS: FUROSEMIDE 20 MG TAB NGT (09:08)
[2018-10-11] MEDS: FLUCONAZOLE 100 MG TAB PO (09:08)
[2018-10-11] MEDS: ENOXAPARIN 30 MG/0.3 ML SYG SC (10:13)
[2018-10-12] MEDS: ALBUTEROL/IPRATROPIUM (NEB) 3 ML AMP HHN ×4 (01:39→20:29)
[2018-10-12] MEDS: ACETYLCYSTEINE 20% 4 ML VIAL NEB ×4 (01:39→20:29)
[2018-10-12] MEDS: ENOXAPARIN 30 MG/0.3 ML SYG SC (09:54)
[2018-10-12] MEDS: ZINC SULFATE 220 MG CAP GTB (09:55)
[2018-10-12] MEDS: CARBIDOPA/LEVODOPA (25/100) TAB GTB ×3 (09:55→21:02)
[2018-10-12] MEDS: METOPROLOL 25 MG TAB PO ×2 (09:55→21:02)
[2018-10-12] MEDS: AMIODARONE 200 MG TAB GTB (09:55)
[2018-10-12] MEDS: BALSAM PERU/CASTOR OIL 60 GM TUBE TOP (09:56)
[2018-10-12] MEDS: FUROSEMIDE 20 MG TAB NGT (09:56)
[2018-10-12] MEDS: ASCORBIC ACID 500 MG TAB GTB ×2 (09:56→21:02)
[2018-10-12] MEDS: FAMOTIDINE 20 MG TAB GTB (09:56)
[2018-10-12] MEDS: FLUCONAZOLE 100 MG TAB PO (09:56)
[2018-10-13] MEDS: ALBUTEROL/IPRATROPIUM (NEB) 3 ML AMP HHN ×4 (01:49→20:06)
[2018-10-13] MEDS: ACETYLCYSTEINE 20% 4 ML VIAL NEB ×4 (01:49→20:06)
[2018-10-13] MEDS: FUROSEMIDE 20 MG TAB NGT (08:06)
[2018-10-13] MEDS: ASCORBIC ACID 500 MG TAB GTB ×2 (08:06→23:05)
[2018-10-13] MEDS: FAMOTIDINE 20 MG TAB GTB (08:06)
[2018-10-13] MEDS: FLUCONAZOLE 100 MG TAB PO (08:06)
[2018-10-13] MEDS: CARBIDOPA/LEVODOPA (25/100) TAB GTB ×3 (08:06→23:05)
[2018-10-13] MEDS: ZINC SULFATE 220 MG CAP GTB (08:06)
[2018-10-13] MEDS: BALSAM PERU/CASTOR OIL 60 GM TUBE TOP (08:06)
[2018-10-13] MEDS: AMIODARONE 200 MG TAB GTB (08:06)
[2018-10-13] MEDS: METOPROLOL 25 MG TAB PO ×2 (08:07→23:07)
[2018-10-13] MEDS: ENOXAPARIN 30 MG/0.3 ML SYG SC (08:13)
[2018-10-14] MEDS: ACETYLCYSTEINE 20% 4 ML VIAL NEB ×4 (01:54→19:57)
[2018-10-14] MEDS: ALBUTEROL/IPRATROPIUM (NEB) 3 ML AMP HHN ×4 (01:55→19:57)
[2018-10-14] MEDS: CARBIDOPA/LEVODOPA (25/100) TAB GTB ×3 (08:42→21:22)
[2018-10-14] MEDS: FAMOTIDINE 20 MG TAB GTB (08:42)
[2018-10-14] MEDS: AMIODARONE 200 MG TAB GTB (08:42)
[2018-10-14] MEDS: FLUCONAZOLE 100 MG TAB PO (08:42)
[2018-10-14] MEDS: ASCORBIC ACID 500 MG TAB GTB ×2 (08:42→21:22)
[2018-10-14] MEDS: METOPROLOL 25 MG TAB PO ×2 (08:42→21:23)
[2018-10-14] MEDS: ZINC SULFATE 220 MG CAP GTB (08:42)
[2018-10-14] MEDS: FUROSEMIDE 20 MG TAB NGT (08:43)
[2018-10-14] MEDS: BALSAM PERU/CASTOR OIL 60 GM TUBE TOP (08:43)
[2018-10-14] MEDS: ENOXAPARIN 30 MG/0.3 ML SYG SC (08:48)
[2018-10-14 12:24] LABS: HEMOGLOBIN 8.8 g/dl (14.0-18.0)
[2018-10-14] MEDS: EPOETIN 10000 UNITS/ML (NON ESRD/NON ONCOLOGY) SC (16:26)
[2018-10-15] MEDS: ACETYLCYSTEINE 20% 4 ML VIAL NEB ×4 (01:47→19:52)
[2018-10-15] MEDS: ALBUTEROL/IPRATROPIUM (NEB) 3 ML AMP HHN ×4 (01:47→19:51)
[2018-10-15] MEDS: FLUCONAZOLE 100 MG TAB PO (09:06)
[2018-10-15] MEDS: ZINC SULFATE 220 MG CAP GTB (09:06)
[2018-10-15] MEDS: CARBIDOPA/LEVODOPA (25/100) TAB GTB ×3 (09:06→20:19)
[2018-10-15] MEDS: FUROSEMIDE 20 MG TAB NGT (09:07)
[2018-10-15] MEDS: BALSAM PERU/CASTOR OIL 60 GM TUBE TOP (09:07)
[2018-10-15] MEDS: AMIODARONE 200 MG TAB GTB (09:07)
[2018-10-15] MEDS: ASCORBIC ACID 500 MG TAB GTB ×2 (09:07→20:19)
[2018-10-15] MEDS: FAMOTIDINE 20 MG TAB GTB (09:07)
[2018-10-15] MEDS: METOPROLOL 25 MG TAB PO ×2 (09:07→20:19)
[2018-10-15] MEDS: ENOXAPARIN 30 MG/0.3 ML SYG SC (09:09)
== END 2018-10-16 00:20 | DRG 870 ==
LOC: 6WM 10-02 06:22 → ICU 10-05 11:15 → TEL 10-07 18:21 → ICU 09-22 08:09 → E/R 18:41 → ICU 09-26 10:00
PROC: 0BH18EZ Insertion of Endotracheal Airway into Trachea, Via Natural or Artificial Opening Endoscopic (ICD-10-PCS; 2018-09-21)
PROC: 5A1955Z Respiratory Ventilation, Greater than 96 Consecutive Hours (ICD-10-PCS; 2018-09-22)
PROC: 02HV33Z Insertion of Infusion Device into Superior Vena Cava, Percutaneous Approach (ICD-10-PCS; principal; 2018-09-26)
DX: A41.9 Sepsis, unspecified organism (principal); J18.9 Pneumonia, unspecified organism; J96.01 Acute respiratory failure with hypoxia; I50.33 Acute on chronic diastolic (congestive) heart failure; E44.0 Moderate protein-calorie malnutrition; Z68.1 Body mass index [BMI] 19.9 or less, adult; N39.0 Urinary tract infection, site not specified; G93.49 Other encephalopathy; I47.1 Supraventricular tachycardia; T17.890A Other foreign object in other parts of respiratory tract causing asphyxiation, initial encounter; R65.20 Severe sepsis without septic shock; I11.0 Hypertensive heart disease with heart failure; I25.10 Atherosclerotic heart disease of native coronary artery without angina pectoris; G20 Parkinson's disease; K21.9 Gastro-esophageal reflux disease without esophagitis; F03.90 Unspecified dementia, unspecified severity, without behavioral disturbance, psychotic disturbance, mood disturbance, and anxiety; I48.0 Paroxysmal atrial fibrillation; B96.20 Unspecified Escherichia coli [E. coli] as the cause of diseases classified elsewhere; K21.0 Gastro-esophageal reflux disease with esophagitis; Z93.1 Gastrostomy status; R13.10 Dysphagia, unspecified; X58.XXXA Exposure to other specified factors, initial encounter
CPT/HCPCS: 31500; 36415; 36569; 36600; 71045; 76937; 80048; 80053; 80162; 80202; 81001; 82270; 82803; 82962; 83036; 83605; 83735; 83880; 84100; 84484; 85018; 85025; 85610; 85730; 86850; 86900; 86901; 86920; 87040; 87070; 87081; 87086; 87400; 89220; 93005; 93306; 94002; 94003; 94640; 94664; 94667; 94668; 94770; 96365; 96366; 96375; 96376; 99291-25

== ENCOUNTER 2019-01-26 22:36 | Inpatient (IN) | payer MEDICARE, BC ==
[2019-01-26] MEDS ORDERED: SOD CHLORIDE 0.9% 1,000 ML IV (22:47)
[2019-01-26 23:04] LABS: ADD MAN DIFF? NO
[2019-01-26] MEDS: SODIUM CHLORIDE 0.9% 1L BAG IV* (23:04)
[2019-01-26] MEDS: CEFEPIME 1GM/50 ML (PMX) 50 ML IVPB (23:05)
[2019-01-26 23:09] LABS: WHITE BLOOD COUNT 18.6 10^3/ul (4.8-10.8)
[2019-01-26 23:09] LABS: BASOPHILS % 0.2 % (0.0-2.0); EOSINOPHILS % 0.2 % (0.0-7.0); HEMATOCRIT 36.3 % (42.0-52.0); HEMOGLOBIN 11.6 g/dl (14.0-18.0); LYMPHOCYTES # 1.7 10^3/ul (0.8-2.9); LYMPHOCYTES % 9.3 % (15.0-51.0); MEAN CORPUSCULAR HEMOGLOBIN 29.9 pg (29.0-33.0); MEAN CORPUSCULAR VOLUME 93.6 fl (82.0-101.0); MEAN PLATELET VOLUME 11.3 fl (7.4-10.4); MONOCYTE # 1.3 10^3/ul (0.3-0.9); MONOCYTES % 6.8 % (0.0-11.0); NEUTROPHIL # 15.3 10^3/ul (1.6-7.5); NEUTROPHILS % 82.3 % (39.0-77.0); PLATELET COUNT 330 10^3/UL (140-415); RED BLOOD COUNT 3.88 10^6/ul (4.70-6.10); RED CELL DISTRIBUTION WIDTH 16.1 % (11.5-14.5)
[2019-01-26] MEDS: VANCOMYCIN 1 GM (PMX) 250 ML IVPB (23:23)
[2019-01-26 23:25] LABS: ANION GAP 8 (5-13); BLOOD UREA NITROGEN 33 mg/dl (7-20); CALCIUM 8.6 mg/dl (8.4-10.2); CARBON DIOXIDE 31 mmol/L (21-31); CHLORIDE 100 mmol/L (97-110); CREATININE 0.52 mg/dl (0.61-1.24); GLUCOSE 169 mg/dl (70-220); POTASSIUM 3.9 mmol/L (3.5-5.1); SODIUM 139 mmol/L (135-144)
[2019-01-26 23:29] LABS: INR 1.08; PARTIAL THROMBOPLASTIN TIME 23.5 Sec (23.0-35.0); PROTIME 14.1 Sec (11.9-14.9); PT RATIO 1.1
[2019-01-26 23:38] LABS: B-TYPE NATRIURETIC PEPTIDE 318 PG/ML (0-450); TROPONIN-I < 0.012 ng/ml (0.000-0.120)
[2019-01-27] MEDS ORDERED: ONDANSETRON 4 MG INJ IV
[2019-01-27 00:01] LABS: ADD UMIC NO; UR ASCORBIC ACID 40 mg/dL (NEGATIVE); UR BACTERIA FEW /HPF (NONE SEEN); UR BILIRUBIN (Dip) NEGATIVE (NEGATIVE); UR BLOOD (Dip) NEGATIVE (NEGATIVE); UR CLARITY SLIGHTLY CLOUDY (CLEAR); UR COLOR YELLOW (YELLOW); UR GLUCOSE (Dip) NEGATIVE (NEGATIVE); UR KETONES (Dip) NEGATIVE (NEGATIVE); UR LEUKOCYTE ESTERASE (Dip) NEGATIVE Leu/ul (NEGATIVE); UR NITRITE (Dip) NEGATIVE (NEGATIVE); UR RBC 15 /HPF (0-5); UR SPECIFIC GRAVITY (Dip) 1.017 (1.003-1.030); UR TOTAL PROTEIN (Dip) NEGATIVE (NEGATIVE); UR UROBILINOGEN (Dip) 2+ mg/dL (NEGATIVE); UR WBC 3 /HPF (0-5)
[2019-01-27] MEDS: ACETAMINOPHEN 325 MG TAB PO (00:03)
[2019-01-27] MEDS: ACETAMINOPHEN 650MG/20.3ML CUP GTB (00:23)
[2019-01-27 00:47] LABS: LACTIC ACID 2.3 mmol/L (0.5-2.0)
[2019-01-27] MEDS ORDERED: VANCOMYCIN IV PER PHARMACY XX (04:00)
[2019-01-27] MEDS ORDERED: ALBUTEROL/IPRATROPIUM (NEB) 3 ML AMP HHN (04:00)
[2019-01-27] MEDS: ALBUTEROL/IPRATROPIUM (NEB) 3 ML AMP HHN ×4 (04:29→20:45)
[2019-01-27 04:40] LABS: LACTIC ACID 2.7 mmol/L (0.5-2.0)
[2019-01-27] MEDS: DEXTROSE 5%-0.45% NACL 1,000 ML IV ×2 (04:54→17:12)
[2019-01-27] MEDS: PIPER-TAZO 2.25 GM (PMX) 50 ML IVPB ×3 (04:54→17:34)
[2019-01-27] MEDS ORDERED: PENDING SANTYL ORDER FOR WOUND CARE XX (05:00)
[2019-01-27 06:34] LABS: ABNORMAL IP MESSAGE 1; HEMATOCRIT 35.6 % (42.0-52.0); HEMOGLOBIN 10.9 g/dl (14.0-18.0); MEAN CORPUSCULAR HEMOGLOBIN 29.1 pg (29.0-33.0); MEAN CORPUSCULAR HGB CONC 30.6 g/dl (32.0-37.0); MEAN CORPUSCULAR VOLUME 95.2 fl (82.0-101.0); MEAN PLATELET VOLUME 11.7 fl (7.4-10.4); PLATELET COUNT 286 10^3/UL (140-415); POSITIVE DIFF @See below; RED BLOOD COUNT 3.74 10^6/ul (4.70-6.10); RED CELL DISTRIBUTION WIDTH 16.3 % (11.5-14.5)
[2019-01-27 06:34] LABS: WHITE BLOOD COUNT 8.4 10^3/ul (4.8-10.8)
[2019-01-27 06:42] LABS: ADD MAN DIFF? YES
[2019-01-27 07:14] LABS: ANION GAP 9 (5-13); BLOOD UREA NITROGEN 31 mg/dl (7-20); CARBON DIOXIDE 26 mmol/L (21-31); CHLORIDE 104 mmol/L (97-110); CREATININE 0.51 mg/dl (0.61-1.24); GLUCOSE 112 mg/dl (70-220); POTASSIUM 4.2 mmol/L (3.5-5.1); SODIUM 139 mmol/L (135-144)
[2019-01-27 09:21] LABS: ANISOCYTOSIS 1+ (0-0); BAND NEUTROPHILS #M 3.1 10^3/ul (0.0-0.6); BAND NEUTROPHILS % (M) 38 % (0-4); LYMPHOCYTES #M 0.5 10^3/ul (0.8-2.9); LYMPHOCYTES % (M) 6 % (15-51); MICROCYTOSIS 1+ (0-0); MONOCYTE #M 0.5 10^3/ul (0.3-0.9); MONOCYTES % (M) 6 % (0-11); PLATELET ESTIMATE NORMAL; POLYCHROMASIA 3+ (0-0); SEG NEUT #M 4.5 10^3/ul (1.6-7.5); SEGMENTED NEUTROPHILS (M) % 50 % (39-77); SMUDGE%M 6 % (0-0)
[2019-01-27] MEDS: ENOXAPARIN 30 MG/0.3 ML SYG SC (09:27)
[2019-01-27] MEDS: VANCOMYCIN 750 MG (PMX) 250 ML IVPB ×2 (11:09→22:18)
[2019-01-27] MEDS ORDERED: ACETAMINOPHEN 325 MG TAB GTB (20:00)
[2019-01-27] MEDS: CARBIDOPA/LEVODOPA (25/100) TAB GTB (22:19)
[2019-01-28] MEDS: PIPER-TAZO 2.25 GM (PMX) 50 ML IVPB ×4 (00:57→17:38)
[2019-01-28] MEDS: ALBUTEROL/IPRATROPIUM (NEB) 3 ML AMP HHN ×4 (01:53→20:37)
[2019-01-28] MEDS: DEXTROSE 5%-0.45% NACL 1,000 ML IV (04:55)
[2019-01-28 05:43] LABS: ABNORMAL IP MESSAGE 1; HEMOGLOBIN 9.3 g/dl (14.0-18.0); MEAN CORPUSCULAR HGB CONC 32.1 g/dl (32.0-37.0); MEAN CORPUSCULAR VOLUME 93.5 fl (82.0-101.0); PLATELET COUNT 189 10^3/UL (140-415); POSITIVE DIFF @See below; RED CELL DISTRIBUTION WIDTH 16.3 % (11.5-14.5)
[2019-01-28 05:43] LABS: WHITE BLOOD COUNT 8.9 10^3/ul (4.8-10.8)
[2019-01-28 05:48] LABS: ADD MAN DIFF? YES
[2019-01-28 06:24] LABS: LACTIC ACID 1.7 mmol/L (0.5-2.0)
[2019-01-28 06:29] LABS: ANION GAP 4 (5-13); BLOOD UREA NITROGEN 31 mg/dl (7-20); CALCIUM 8.2 mg/dl (8.4-10.2); CARBON DIOXIDE 29 mmol/L (21-31); CHLORIDE 106 mmol/L (97-110); CREATININE 0.47 mg/dl (0.61-1.24); GLUCOSE 153 mg/dl (70-220); POTASSIUM 3.6 mmol/L (3.5-5.1); SODIUM 139 mmol/L (135-144)
[2019-01-28 07:49] LABS: ANISOCYTOSIS 1+ (0-0); BAND NEUTROPHILS #M 2.9 10^3/ul (0.0-0.6); BAND NEUTROPHILS % (M) 33 % (0-4); EOSINOPHILS % (M) 1 % (0-7); LYMPHOCYTES #M 0.8 10^3/ul (0.8-2.9); LYMPHOCYTES % (M) 9 % (15-51); MONOCYTE #M 0.3 10^3/ul (0.3-0.9); MONOCYTES % (M) 4 % (0-11); PLATELET ESTIMATE NORMAL; POLYCHROMASIA 3+ (0-0); SEGMENTED NEUTROPHILS (M) % 53 % (39-77); SMUDGE%M 7 % (0-0)
[2019-01-28] MEDS: CARBIDOPA/LEVODOPA (25/100) TAB GTB ×3 (09:08→20:08)
[2019-01-28] MEDS: ENOXAPARIN 30 MG/0.3 ML SYG SC (09:11)
[2019-01-28 11:54] LABS: VANCOMYCIN,TROUGH 9.2 ug/ml (10.0-20.0)
[2019-01-28] MEDS: VANCOMYCIN 750 MG (PMX) 250 ML IVPB (12:33)
[2019-01-28] MEDS: VANCOMYCIN 1 GM 250 ML IVPB (23:31)
[2019-01-29] MEDS: PIPER-TAZO 2.25 GM (PMX) 50 ML IVPB ×4 (01:33→18:22)
[2019-01-29] MEDS: ALBUTEROL/IPRATROPIUM (NEB) 3 ML AMP HHN ×4 (02:28→20:00)
[2019-01-29 06:21] LABS: ADD MAN DIFF? NO
[2019-01-29 06:25] LABS: ABNORMAL IP MESSAGE 1; BASOPHILS % 0.1 % (0.0-2.0); EOSINOPHILS # 0.1 10^3/ul (0.0-0.5); EOSINOPHILS % 1.2 % (0.0-7.0); HEMATOCRIT 27.6 % (42.0-52.0); HEMOGLOBIN 8.7 g/dl (14.0-18.0); LYMPHOCYTES # 0.4 10^3/ul (0.8-2.9); LYMPHOCYTES % 5.6 % (15.0-51.0); MEAN CORPUSCULAR HEMOGLOBIN 30.2 pg (29.0-33.0); MEAN CORPUSCULAR HGB CONC 31.5 g/dl (32.0-37.0); MEAN CORPUSCULAR VOLUME 95.8 fl (82.0-101.0); MEAN PLATELET VOLUME 11.2 fl (7.4-10.4); MONOCYTE # 0.8 10^3/ul (0.3-0.9); NEUTROPHIL # 6.3 10^3/ul (1.6-7.5); NEUTROPHILS % 81.9 % (39.0-77.0); PLATELET COUNT 193 10^3/UL (140-415); POSITIVE DIFF @See below; RED BLOOD COUNT 2.88 10^6/ul (4.70-6.10); RED CELL DISTRIBUTION WIDTH 15.8 % (11.5-14.5)
[2019-01-29 06:25] LABS: WHITE BLOOD COUNT 7.7 10^3/ul (4.8-10.8)
[2019-01-29 07:00] LABS: ANION GAP 4 (5-13); BLOOD UREA NITROGEN 25 mg/dl (7-20); CALCIUM 7.9 mg/dl (8.4-10.2); CARBON DIOXIDE 30 mmol/L (21-31); CHLORIDE 104 mmol/L (97-110); CREATININE 0.48 mg/dl (0.61-1.24); GLUCOSE 139 mg/dl (70-220); POTASSIUM 3.4 mmol/L (3.5-5.1); SODIUM 138 mmol/L (135-144)
[2019-01-29] MEDS: CARBIDOPA/LEVODOPA (25/100) TAB GTB ×3 (08:03→20:41)
[2019-01-29] MEDS: ENOXAPARIN 30 MG/0.3 ML SYG SC (08:11)
[2019-01-29] MEDS: VANCOMYCIN 1 GM 250 ML IVPB ×2 (11:29→22:38)
[2019-01-29] MEDS: POTASSIUM CHLORIDE 20 MEQ POWDER FOR ORAL SOLN GTB (15:15)
[2019-01-29] MEDS: MAGNESIUM SULFATE 1 GM/D5W 100 ML IVPB (15:16)
[2019-01-29] MEDS: DEXTROSE 5%-0.45% NACL 1,000 ML IV ×2 (15:49→18:22)
[2019-01-29] MEDS: ACETAMINOPHEN 650MG/20.3ML CUP GTB (20:41)
[2019-01-29] MEDS: METOPROLOL 25 MG TAB GTB (20:42)
[2019-01-30] MEDS: PIPER-TAZO 2.25 GM (PMX) 50 ML IVPB ×4 (00:59→17:52)
[2019-01-30] MEDS: ALBUTEROL/IPRATROPIUM (NEB) 3 ML AMP HHN ×4 (01:12→19:32)
[2019-01-30 05:52] LABS: ABNORMAL IP MESSAGE 1; HEMATOCRIT 29.4 % (42.0-52.0); HEMOGLOBIN 9.2 g/dl (14.0-18.0); MEAN CORPUSCULAR HGB CONC 31.3 g/dl (32.0-37.0); MEAN CORPUSCULAR VOLUME 95.8 fl (82.0-101.0); MEAN PLATELET VOLUME 11.7 fl (7.4-10.4); PLATELET COUNT 237 10^3/UL (140-415); POSITIVE DIFF @See below; RED BLOOD COUNT 3.07 10^6/ul (4.70-6.10); RED CELL DISTRIBUTION WIDTH 15.7 % (11.5-14.5)
[2019-01-30 05:52] LABS: WHITE BLOOD COUNT 10.2 10^3/ul (4.8-10.8)
[2019-01-30 06:02] LABS: ADD MAN DIFF? YES
[2019-01-30 06:17] LABS: MAGNESIUM 2.2 mg/dl (1.7-2.5)
[2019-01-30 06:21] LABS: ANION GAP 4 (5-13); BLOOD UREA NITROGEN 19 mg/dl (7-20); CALCIUM 8.2 mg/dl (8.4-10.2); CARBON DIOXIDE 29 mmol/L (21-31); CHLORIDE 105 mmol/L (97-110); CREATININE 0.41 mg/dl (0.61-1.24); GLUCOSE 151 mg/dl (70-220); SODIUM 138 mmol/L (135-144)
[2019-01-30] MEDS: METOPROLOL 25 MG TAB GTB ×2 (08:38→20:41)
[2019-01-30] MEDS: CARBIDOPA/LEVODOPA (25/100) TAB GTB ×3 (08:38→20:41)
[2019-01-30 08:39] LABS: BAND NEUTROPHILS #M 0.9 10^3/ul (0.0-0.6); BAND NEUTROPHILS % (M) 9 % (0-4); EOSINOPHILS % (M) 4 % (0-7); LYMPHOCYTES #M 0.2 10^3/ul (0.8-2.9); LYMPHOCYTES % (M) 2 % (15-51); MONOCYTE #M 0.7 10^3/ul (0.3-0.9); MONOCYTES % (M) 7 % (0-11); PLATELET ESTIMATE NORMAL; POLYCHROMASIA 2+ (0-0); SEGMENTED NEUTROPHILS (M) % 78 % (39-77); SMUDGE%M 1 % (0-0)
[2019-01-30] MEDS: ENOXAPARIN 30 MG/0.3 ML SYG SC (08:41)
[2019-01-30] MEDS: VANCOMYCIN 1 GM 250 ML IVPB ×2 (11:05→22:42)
[2019-01-30] MEDS: FUROSEMIDE 20 MG INJ IV (11:48)
[2019-01-30] MEDS: DEXTROSE 5%-0.45% NACL 1,000 ML IV (15:49)
[2019-01-31] MEDS: PIPER-TAZO 2.25 GM (PMX) 50 ML IVPB ×2 (00:36→05:07)
[2019-01-31] MEDS: ALBUTEROL/IPRATROPIUM (NEB) 3 ML AMP HHN ×5 (01:08→20:46)
[2019-01-31] MEDS: DEXTROSE 5%-0.45% NACL 1,000 ML IV ×2 (05:09→15:49)
[2019-01-31] MEDS: CARBIDOPA/LEVODOPA (25/100) TAB GTB ×3 (08:37→20:51)
[2019-01-31] MEDS: METOPROLOL 25 MG TAB GTB ×2 (08:38→20:52)
[2019-01-31] MEDS: FUROSEMIDE 20 MG INJ IV (08:38)
[2019-01-31] MEDS: ENOXAPARIN 30 MG/0.3 ML SYG SC (08:48)
[2019-01-31 11:46] LABS: VANCOMYCIN,TROUGH 14.4 ug/ml (10.0-20.0)
[2019-01-31] MEDS: VANCOMYCIN 1 GM 250 ML IVPB ×2 (12:43→23:40)
[2019-01-31] MEDS: FUROSEMIDE 40 MG INJ IV (13:29)
[2019-01-31] MEDS: MEROPENEM 1 GM/50ML(PMX) 50 ML IVPB (20:50)
[2019-02-01] MEDS: ALBUTEROL/IPRATROPIUM (NEB) 3 ML AMP HHN ×4 (02:30→20:05)
[2019-02-01] MEDS: FUROSEMIDE 20 MG INJ IV ×2 (05:15→17:12)
[2019-02-01] MEDS: DEXTROSE 5%-0.45% NACL 1,000 ML IV (05:21)
[2019-02-01 06:24] LABS: CREATININE 0.44 mg/dl (0.61-1.24)
[2019-02-01 06:24] LABS: BLOOD UREA NITROGEN 23 mg/dl (7-20)
[2019-02-01] MEDS: MEROPENEM 1 GM/50ML(PMX) 50 ML IVPB ×2 (08:26→21:06)
[2019-02-01] MEDS: METOPROLOL 25 MG TAB GTB ×2 (08:28→21:10)
[2019-02-01] MEDS: CARBIDOPA/LEVODOPA (25/100) TAB GTB ×3 (08:28→21:09)
[2019-02-01] MEDS: ENOXAPARIN 30 MG/0.3 ML SYG SC (08:32)
[2019-02-01] MEDS: VANCOMYCIN 1 GM 250 ML IVPB ×2 (11:00→23:14)
[2019-02-01] MEDS: ACETAMINOPHEN 650MG/20.3ML CUP GTB (13:00)
[2019-02-02] MEDS: ALBUTEROL/IPRATROPIUM (NEB) 3 ML AMP HHN ×4 (02:41→20:55)
[2019-02-02] MEDS: FUROSEMIDE 20 MG INJ IV ×2 (05:57→17:18)
[2019-02-02 06:12] LABS: ADD MAN DIFF? NO
[2019-02-02 06:30] LABS: WHITE BLOOD COUNT 9.4 10^3/ul (4.8-10.8)
[2019-02-02 06:30] LABS: HEMATOCRIT 33.3 % (42.0-52.0); HEMOGLOBIN 10.3 g/dl (14.0-18.0); MEAN CORPUSCULAR HEMOGLOBIN 29.9 pg (29.0-33.0); MEAN CORPUSCULAR HGB CONC 30.9 g/dl (32.0-37.0); MEAN CORPUSCULAR VOLUME 96.5 fl (82.0-101.0); MEAN PLATELET VOLUME 11.2 fl (7.4-10.4); NEUTROPHILS % 69.7 % (39.0-77.0); PLATELET COUNT 357 10^3/UL (140-415); RED BLOOD COUNT 3.45 10^6/ul (4.70-6.10); RED CELL DISTRIBUTION WIDTH 14.9 % (11.5-14.5)
[2019-02-02 06:31] LABS: BASOPHILS % 0.3 % (0.0-2.0); EOSINOPHILS # 0.4 10^3/ul (0.0-0.5); EOSINOPHILS % 4.3 % (0.0-7.0); LYMPHOCYTES # 1.1 10^3/ul (0.8-2.9); LYMPHOCYTES % 11.8 % (15.0-51.0); MONOCYTE # 0.9 10^3/ul (0.3-0.9); MONOCYTES % 9.2 % (0.0-11.0); NEUTROPHIL # 6.5 10^3/ul (1.6-7.5)
[2019-02-02 06:45] LABS: MAGNESIUM 2.3 mg/dl (1.7-2.5)
[2019-02-02 06:56] LABS: ANION GAP 7 (5-13); BLOOD UREA NITROGEN 26 mg/dl (7-20); CARBON DIOXIDE 38 mmol/L (21-31); CHLORIDE 98 mmol/L (97-110); CREATININE 0.44 mg/dl (0.61-1.24); GLUCOSE 152 mg/dl (70-220); POTASSIUM 4.4 mmol/L (3.5-5.1); SODIUM 143 mmol/L (135-144)
[2019-02-02] MEDS: METOPROLOL 25 MG TAB GTB ×2 (10:13→20:46)
[2019-02-02] MEDS: MEROPENEM 1 GM/50ML(PMX) 50 ML IVPB ×2 (10:13→20:45)
[2019-02-02] MEDS: CARBIDOPA/LEVODOPA (25/100) TAB GTB ×3 (10:14→20:45)
[2019-02-02] MEDS: ENOXAPARIN 30 MG/0.3 ML SYG SC (10:15)
[2019-02-02] MEDS: VANCOMYCIN 1 GM 250 ML IVPB ×2 (11:06→23:32)
[2019-02-02] MEDS: DEXTROSE 5%-0.45% NACL 1,000 ML IV ×2 (15:49→18:37)
[2019-02-03] MEDS: ALBUTEROL/IPRATROPIUM (NEB) 3 ML AMP HHN ×4 (01:11→19:50)
[2019-02-03] MEDS: FUROSEMIDE 20 MG INJ IV (05:18)
[2019-02-03] MEDS: MEROPENEM 1 GM/50ML(PMX) 50 ML IVPB ×2 (08:13→20:13)
[2019-02-03] MEDS: CARBIDOPA/LEVODOPA (25/100) TAB GTB ×3 (08:13→20:15)
[2019-02-03] MEDS: METOPROLOL 25 MG TAB GTB ×2 (08:13→20:15)
[2019-02-03] MEDS: ENOXAPARIN 30 MG/0.3 ML SYG SC (08:18)
[2019-02-03] MEDS: VANCOMYCIN 1 GM 250 ML IVPB ×2 (11:10→23:32)
[2019-02-04] MEDS: ALBUTEROL/IPRATROPIUM (NEB) 3 ML AMP HHN ×4 (02:00→20:39)
[2019-02-04] MEDS: DEXTROSE 5%-0.45% NACL 1,000 ML IV ×2 (02:22→14:39)
[2019-02-04] MEDS: CARBIDOPA/LEVODOPA (25/100) TAB GTB ×3 (08:42→20:49)
[2019-02-04] MEDS: MEROPENEM 1 GM/50ML(PMX) 50 ML IVPB ×2 (08:42→20:49)
[2019-02-04] MEDS: FUROSEMIDE 20 MG INJ IV (08:43)
[2019-02-04] MEDS: METOPROLOL 25 MG TAB GTB ×2 (08:43→20:49)
[2019-02-04] MEDS: ENOXAPARIN 30 MG/0.3 ML SYG SC (08:48)
[2019-02-04 11:55] LABS: VANCOMYCIN,TROUGH 17.5 ug/ml (10.0-20.0)
[2019-02-04] MEDS: VANCOMYCIN 1 GM 250 ML IVPB (12:30)
[2019-02-04] MEDS: BALSAM PERU/CASTOR OIL 60 GM TUBE TOP (20:50)
[2019-02-04] MEDS: VANCOMYCIN 750 MG (PMX) 250 ML IVPB (23:57)
[2019-02-05] MEDS: ALBUTEROL/IPRATROPIUM (NEB) 3 ML AMP HHN ×4 (01:24→19:58)
[2019-02-05] MEDS: CARBIDOPA/LEVODOPA (25/100) TAB GTB ×3 (08:31→21:27)
[2019-02-05] MEDS: METOPROLOL 25 MG TAB GTB ×2 (08:32→21:00)
[2019-02-05] MEDS: FUROSEMIDE 20 MG INJ IV (08:32)
[2019-02-05] MEDS: BALSAM PERU/CASTOR OIL 60 GM TUBE TOP ×2 (08:33→21:27)
[2019-02-05] MEDS: ENOXAPARIN 30 MG/0.3 ML SYG SC (08:41)
[2019-02-05] MEDS: MEROPENEM 1 GM/50ML(PMX) 50 ML IVPB ×2 (08:50→21:27)
[2019-02-05] MEDS: DEXTROSE 5%-0.45% NACL 1,000 ML IV (08:51)
[2019-02-05] MEDS: ACETAMINOPHEN 650MG/20.3ML CUP GTB (11:28)
[2019-02-05] MEDS: VANCOMYCIN 750 MG (PMX) 250 ML IVPB (11:28)
[2019-02-05] MEDS: ASCORBIC ACID 500 MG TAB GTB (12:37)
[2019-02-05] MEDS: ZINC SULFATE 220 MG CAP GTB (12:37)
[2019-02-06] MEDS: VANCOMYCIN 750 MG (PMX) 250 ML IVPB ×2 (01:02→12:55)
[2019-02-06] MEDS: ALBUTEROL/IPRATROPIUM (NEB) 3 ML AMP HHN ×4 (01:14→20:41)
[2019-02-06 05:52] LABS: ADD MAN DIFF? NO
[2019-02-06 05:56] LABS: WHITE BLOOD COUNT 9.5 10^3/ul (4.8-10.8)
[2019-02-06 05:56] LABS: BASOPHILS % 0.4 % (0.0-2.0); EOSINOPHILS # 0.2 10^3/ul (0.0-0.5); HEMATOCRIT 29.8 % (42.0-52.0); HEMOGLOBIN 9.4 g/dl (14.0-18.0); LYMPHOCYTES # 0.9 10^3/ul (0.8-2.9); LYMPHOCYTES % 9.2 % (15.0-51.0); MEAN CORPUSCULAR HEMOGLOBIN 29.9 pg (29.0-33.0); MEAN CORPUSCULAR HGB CONC 31.5 g/dl (32.0-37.0); MEAN CORPUSCULAR VOLUME 94.9 fl (82.0-101.0); MEAN PLATELET VOLUME 10.8 fl (7.4-10.4); MONOCYTES % 10.2 % (0.0-11.0); NEUTROPHIL # 7.3 10^3/ul (1.6-7.5); NEUTROPHILS % 76.7 % (39.0-77.0); PLATELET COUNT 413 10^3/UL (140-415); RED BLOOD COUNT 3.14 10^6/ul (4.70-6.10); RED CELL DISTRIBUTION WIDTH 14.2 % (11.5-14.5)
[2019-02-06 06:17] LABS: ANION GAP 4 (5-13); BLOOD UREA NITROGEN 26 mg/dl (7-20); CALCIUM 8.1 mg/dl (8.4-10.2); CARBON DIOXIDE 34 mmol/L (21-31); CHLORIDE 99 mmol/L (97-110); CREATININE 0.44 mg/dl (0.61-1.24); GLUCOSE 113 mg/dl (70-220); POTASSIUM 4.6 mmol/L (3.5-5.1); SODIUM 137 mmol/L (135-144)
[2019-02-06] MEDS: ZINC SULFATE 220 MG CAP GTB (08:44)
[2019-02-06] MEDS: ASCORBIC ACID 500 MG TAB GTB (08:44)
[2019-02-06] MEDS: MEROPENEM 1 GM/50ML(PMX) 50 ML IVPB ×2 (08:44→20:17)
[2019-02-06] MEDS: METOPROLOL 25 MG TAB GTB ×2 (08:45→20:18)
[2019-02-06] MEDS: FUROSEMIDE 20 MG INJ IV (08:45)
[2019-02-06] MEDS: CARBIDOPA/LEVODOPA (25/100) TAB GTB ×3 (08:45→20:17)
[2019-02-06] MEDS: ENOXAPARIN 30 MG/0.3 ML SYG SC (08:50)
[2019-02-06] MEDS: BALSAM PERU/CASTOR OIL 60 GM TUBE TOP ×2 (08:52→20:18)
[2019-02-06] MEDS: DEXTROSE 5%-0.45% NACL 1,000 ML IV (15:49)
[2019-02-07] MEDS: VANCOMYCIN 750 MG (PMX) 250 ML IVPB ×2 (01:00→13:25)
[2019-02-07] MEDS: ALBUTEROL/IPRATROPIUM (NEB) 3 ML AMP HHN ×4 (01:58→19:56)
[2019-02-07] MEDS: ASCORBIC ACID 500 MG TAB GTB (09:33)
[2019-02-07] MEDS: FUROSEMIDE 20 MG INJ IV (09:33)
[2019-02-07] MEDS: METOPROLOL 25 MG TAB GTB ×2 (09:34→21:19)
[2019-02-07] MEDS: ZINC SULFATE 220 MG CAP GTB (09:34)
[2019-02-07] MEDS: CARBIDOPA/LEVODOPA (25/100) TAB GTB ×3 (09:34→21:18)
[2019-02-07] MEDS: BALSAM PERU/CASTOR OIL 60 GM TUBE TOP ×2 (09:34→21:19)
[2019-02-07] MEDS: MEROPENEM 1 GM/50ML(PMX) 50 ML IVPB ×2 (09:57→21:03)
[2019-02-07] MEDS: ENOXAPARIN 30 MG/0.3 ML SYG SC (10:19)
[2019-02-07 12:33] LABS: VANCOMYCIN,TROUGH 15.4 ug/ml (10.0-20.0)
[2019-02-07] MEDS: DEXTROSE 5%-0.45% NACL 1,000 ML IV (15:49)
[2019-02-08] MEDS: VANCOMYCIN 750 MG (PMX) 250 ML IVPB (00:27)
[2019-02-08] MEDS: ALBUTEROL/IPRATROPIUM (NEB) 3 ML AMP HHN ×4 (01:07→19:41)
[2019-02-08] MEDS: CARBIDOPA/LEVODOPA (25/100) TAB GTB ×3 (09:06→20:59)
[2019-02-08] MEDS: ZINC SULFATE 220 MG CAP GTB (09:06)
[2019-02-08] MEDS: FUROSEMIDE 20 MG INJ IV (09:07)
[2019-02-08] MEDS: METOPROLOL 25 MG TAB GTB ×2 (09:07→20:59)
[2019-02-08] MEDS: ASCORBIC ACID 500 MG TAB GTB (09:07)
[2019-02-08] MEDS: BALSAM PERU/CASTOR OIL 60 GM TUBE TOP ×2 (09:08→21:00)
[2019-02-08] MEDS: MEROPENEM 1 GM/50ML(PMX) 50 ML IVPB (09:08)
[2019-02-08] MEDS: DEXTROSE 5%-0.45% NACL 1,000 ML IV ×2 (09:09→15:49)
[2019-02-08] MEDS: ENOXAPARIN 30 MG/0.3 ML SYG SC (09:29)
[2019-02-08 11:25] LABS: ALANINE AMINOTRANSFERASE 20 IU/L (13-69); ALBUMIN 2.9 g/dl (3.3-4.9); ALBUMIN/GLOBULIN RATIO 0.67; ALKALINE PHOSPHATASE 88 IU/L (42-121); ANION GAP 3 (5-13); ASPARTATE AMINO TRANSFERASE 71 IU/L (15-46); BILIRUBIN,INDIRECT 0.3 mg/dl (0-1.1); BILIRUBIN,TOTAL 0.3 mg/dl (0.2-1.3); BLOOD UREA NITROGEN 25 mg/dl (7-20); CALCIUM 8.3 mg/dl (8.4-10.2); CARBON DIOXIDE 38 mmol/L (21-31); CHLORIDE 97 mmol/L (97-110); CREATININE 0.48 mg/dl (0.61-1.24); GLUCOSE 126 mg/dl (70-220); POTASSIUM 4.7 mmol/L (3.5-5.1); SODIUM 138 mmol/L (135-144); TOTAL PROTEIN 7.2 g/dl (6.1-8.1)
[2019-02-09] MEDS: ALBUTEROL/IPRATROPIUM (NEB) 3 ML AMP HHN ×4 (02:00→19:21)
[2019-02-09 06:14] LABS: ADD MAN DIFF? NO
[2019-02-09 06:33] LABS: BASOPHILS % 0.6 % (0.0-2.0); EOSINOPHILS # 0.2 10^3/ul (0.0-0.5); EOSINOPHILS % 2.7 % (0.0-7.0); HEMOGLOBIN 9.8 g/dl (14.0-18.0); LYMPHOCYTES % 14.3 % (15.0-51.0); MEAN CORPUSCULAR HEMOGLOBIN 29.8 pg (29.0-33.0); MEAN CORPUSCULAR HGB CONC 31.6 g/dl (32.0-37.0); MEAN CORPUSCULAR VOLUME 94.2 fl (82.0-101.0); MEAN PLATELET VOLUME 12.2 fl (7.4-10.4); MONOCYTE # 0.8 10^3/ul (0.3-0.9); MONOCYTES % 12.4 % (0.0-11.0); NEUTROPHIL # 4.5 10^3/ul (1.6-7.5); NEUTROPHILS % 68.5 % (39.0-77.0); PLATELET COUNT 439 10^3/UL (140-415); POSITIVE DIFF @See below; RED BLOOD COUNT 3.29 10^6/ul (4.70-6.10); RED CELL DISTRIBUTION WIDTH 13.9 % (11.5-14.5)
[2019-02-09 06:33] LABS: WHITE BLOOD COUNT 6.6 10^3/ul (4.8-10.8)
[2019-02-09 07:09] LABS: ANION GAP 3 (5-13); BLOOD UREA NITROGEN 26 mg/dl (7-20); CALCIUM 8.3 mg/dl (8.4-10.2); CARBON DIOXIDE 33 mmol/L (21-31); CHLORIDE 99 mmol/L (97-110); CREATININE 0.42 mg/dl (0.61-1.24); GLUCOSE 123 mg/dl (70-220); POTASSIUM 5.2 mmol/L (3.5-5.1); SODIUM 135 mmol/L (135-144)
[2019-02-09] MEDS: ASCORBIC ACID 500 MG TAB GTB (08:08)
[2019-02-09] MEDS: ZINC SULFATE 220 MG CAP GTB (08:08)
[2019-02-09] MEDS: CARBIDOPA/LEVODOPA (25/100) TAB GTB ×3 (08:08→20:44)
[2019-02-09] MEDS: FUROSEMIDE 20 MG TAB PO (08:11)
[2019-02-09] MEDS: METOPROLOL 25 MG TAB GTB ×2 (08:11→20:45)
[2019-02-09] MEDS: ENOXAPARIN 30 MG/0.3 ML SYG SC (08:37)
[2019-02-09] MEDS: NA POLYST SULFON 15 GM/60 ML BTL GTB (13:36)
[2019-02-09] MEDS: DEXTROSE 5%-0.45% NACL 1,000 ML IV (13:37)
[2019-02-09] MEDS: BALSAM PERU/CASTOR OIL 60 GM TUBE TOP ×2 (15:49→20:48)
[2019-02-10] MEDS: ALBUTEROL/IPRATROPIUM (NEB) 3 ML AMP HHN ×4 (02:37→19:46)
[2019-02-10 06:31] LABS: ADD MAN DIFF? NO
[2019-02-10 06:36] LABS: WHITE BLOOD COUNT 6.5 10^3/ul (4.8-10.8)
[2019-02-10 06:36] LABS: BASOPHILS % 0.5 % (0.0-2.0); EOSINOPHILS # 0.1 10^3/ul (0.0-0.5); EOSINOPHILS % 2.1 % (0.0-7.0); HEMATOCRIT 30.1 % (42.0-52.0); HEMOGLOBIN 9.4 g/dl (14.0-18.0); LYMPHOCYTES # 1.5 10^3/ul (0.8-2.9); LYMPHOCYTES % 22.2 % (15.0-51.0); MEAN CORPUSCULAR HEMOGLOBIN 29.3 pg (29.0-33.0); MEAN CORPUSCULAR HGB CONC 31.2 g/dl (32.0-37.0); MEAN CORPUSCULAR VOLUME 93.8 fl (82.0-101.0); MEAN PLATELET VOLUME 11.6 fl (7.4-10.4); NEUTROPHIL # 3.8 10^3/ul (1.6-7.5); NEUTROPHILS % 57.7 % (39.0-77.0); PLATELET COUNT 428 10^3/UL (140-415); RED BLOOD COUNT 3.21 10^6/ul (4.70-6.10); RED CELL DISTRIBUTION WIDTH 13.8 % (11.5-14.5)
[2019-02-10 07:19] LABS: ANION GAP 1 (5-13); BLOOD UREA NITROGEN 24 mg/dl (7-20); CALCIUM 7.8 mg/dl (8.4-10.2); CARBON DIOXIDE 38 mmol/L (21-31); CHLORIDE 99 mmol/L (97-110); CREATININE 0.44 mg/dl (0.61-1.24); GLUCOSE 115 mg/dl (70-220); POTASSIUM 4.7 mmol/L (3.5-5.1); SODIUM 138 mmol/L (135-144)
[2019-02-10] MEDS: ASCORBIC ACID 500 MG TAB GTB (08:18)
[2019-02-10] MEDS: CARBIDOPA/LEVODOPA (25/100) TAB GTB ×3 (08:18→21:47)
[2019-02-10] MEDS: ZINC SULFATE 220 MG CAP GTB (08:18)
[2019-02-10] MEDS: METOPROLOL 25 MG TAB GTB ×2 (08:19→21:47)
[2019-02-10] MEDS: FUROSEMIDE 20 MG TAB PO (08:19)
[2019-02-10] MEDS: ENOXAPARIN 30 MG/0.3 ML SYG SC (08:23)
[2019-02-10] MEDS: DEXTROSE 5%-0.45% NACL 1,000 ML IV (13:23)
[2019-02-10] MEDS: BALSAM PERU/CASTOR OIL 60 GM TUBE TOP ×2 (16:06→21:47)
[2019-02-11] MEDS: ALBUTEROL/IPRATROPIUM (NEB) 3 ML AMP HHN ×3 (02:17→13:21)
[2019-02-11] MEDS: ASCORBIC ACID 500 MG TAB GTB (09:42)
[2019-02-11] MEDS: CARBIDOPA/LEVODOPA (25/100) TAB GTB ×2 (09:42→12:59)
[2019-02-11] MEDS: ZINC SULFATE 220 MG CAP GTB (09:42)
[2019-02-11] MEDS: FUROSEMIDE 20 MG TAB PO (09:43)
[2019-02-11] MEDS: METOPROLOL 25 MG TAB GTB (09:43)
[2019-02-11] MEDS: BALSAM PERU/CASTOR OIL 60 GM TUBE TOP (09:44)
[2019-02-11] MEDS: ENOXAPARIN 30 MG/0.3 ML SYG SC (09:50)
[2019-02-11] MEDS: DEXTROSE 5%-0.45% NACL 1,000 ML IV (13:00)
== END 2019-02-11 19:20 | DRG 871 ==
LOC: 6WM 23:44 → E/R 22:36
DX: A41.9 Sepsis, unspecified organism (principal); J69.0 Pneumonitis due to inhalation of food and vomit; J96.91 Respiratory failure, unspecified with hypoxia; I50.33 Acute on chronic diastolic (congestive) heart failure; G93.40 Encephalopathy, unspecified; Z68.1 Body mass index [BMI] 19.9 or less, adult; E44.0 Moderate protein-calorie malnutrition; R65.20 Severe sepsis without septic shock; R13.10 Dysphagia, unspecified; E78.5 Hyperlipidemia, unspecified; J44.9 Chronic obstructive pulmonary disease, unspecified; G30.9 Alzheimer's disease, unspecified; F02.80 Dementia in other diseases classified elsewhere, unspecified severity, without behavioral disturbance, psychotic disturbance, mood disturbance, and anxiety; G40.909 Epilepsy, unspecified, not intractable, without status epilepticus; I48.0 Paroxysmal atrial fibrillation; G20 Parkinson's disease; L89.159 Pressure ulcer of sacral region, unspecified stage; R31.29 Other microscopic hematuria; I11.0 Hypertensive heart disease with heart failure; Z79.4 Long term (current) use of insulin; Z93.1 Gastrostomy status
CPT/HCPCS: 71045; 80048; 80053; 80202; 81001; 81003; 82565; 83605; 83735; 83880; 84484; 84520; 85025; 85610; 85730; 87040-91; 87081; 93005; 94640; 94664; 96365; 96368; 99285-25